=== PATIENT | female | born 1950 | race Caucasian/White ===

== ENCOUNTER 2017-01-26 22:25 | Inpatient (IN) | payer MEDICARE, BC ==
[~2017-01-26] VITALS: Ht 170.2 cm; Wt 59.4 kg
[2017-01-26] MEDS ORDERED: AMLODIPINE BESYL5 MG ORAL (22:43)
[2017-01-26] MEDS ORDERED: MYRBETRIQ50 MG PO (22:43)
[2017-01-26] MEDS ORDERED: ASPIR 8181 MG ORAL (22:43)
[2017-01-26] MEDS ORDERED: WELCHOL625 MG ORAL (22:43)
[2017-01-26] MEDS ORDERED: TRILEPTAL600 MG PO (22:43)
[2017-01-26] MEDS ORDERED: PROBIOTIC 4X C1 EACH PO (22:43)
[2017-01-26] MEDS ORDERED: FAMCICLOVIR500 MG ORAL (22:43)
[2017-01-26] MEDS ORDERED: VITAMIN D400 INTLU ORAL (22:43)
[2017-01-26] MEDS ORDERED: LIDEX15 GM TOPIC (22:43)
[2017-01-26 23:10] VITALS: BP 120/47
--- NOTE | 2017-01-26 23:18 | Emergency Room Report ---
History of Present Illness General Chief Complaint: Seizure Source: Family Member Present Illness HPI Patient is 66-year-old female brought in by EMS after seizure activity. Patient prior history of seizure disorder. Patient also has prior history of fibromyalgia as well as prior craniotomy. Patient has seizure disorder and takes Trileptal the patient reports having some pain to her head. She has been taking only low-dose aspirin she is not on other anticoagulants at this time. The patient reports having some generalized body ache. Patient was noted to have a seizure in which she fell to the floor Allergies: Coded Allergies: ASPIRIN (Verified Allergy, Unknown, 01/26/17) BACLOFEN (Verified Allergy, Unknown, 01/26/17) BENZODIAZEPINES (Verified Allergy, Unknown, 01/26/17) BENZOIN (Verified Allergy, Unknown, 01/26/17) CAFFEINE (Verified Allergy, Unknown, 01/26/17) CEPHALOSPORINS (Verified Allergy, Unknown, 01/26/17) CIPROFLOXACIN (Verified Allergy, Unknown, 01/26/17) CLINDAMYCIN (Verified Allergy, Unknown, 01/26/17) CODEINE (Verified Allergy, Unknown, 01/26/17) DEXAMETHASONE (Verified Allergy, Unknown, 01/26/17) GABAPENTIN (Verified Allergy, Unknown, 01/26/17) LATEX (Verified Allergy, Unknown, 01/26/17) LEVETIRACETAM (Verified Allergy, Unknown, 01/26/17) OATS (Verified Allergy, Unknown, 01/26/17) ORPHENADRINE (Verified Allergy, Unknown, 01/26/17) OXCARBAZEPINE (Verified Allergy, Unknown, 01/26/17) PENICILLINS (Verified Allergy, Unknown, 01/26/17) STRAWBERRY (Verified Allergy, Unknown, 01/26/17) SULFA (SULFONAMIDE ANTIBIOTICS) (Verified Allergy, Unknown, 01/26/17) SULFAMETHOXAZOLE (Verified Allergy, Unknown, 01/26/17) TIZANIDINE (Verified Allergy, Unknown, 01/26/17) TOBRAMYCIN (Verified Allergy, Unknown, 01/26/17) TRIMETHOPRIM (Verified Allergy, Unknown, 01/26/17) WOOL (Verified Allergy, Unknown, 01/26/17) Wheat (Verified Allergy, Unknown, 01/26/17) Uncoded Allergies: CHLORINE (Allergy, Unknown, 01/26/17) SURGICAL TAPE (Allergy, Unknown, 01/26/17) Patient History Past Medical History: see triage record Last Menstrual Period: n/a Reviewed Nursing Documentation: PMH: Agreed, PSxH: Agreed Nursing Documentation-PMH Past Medical History: No History, Except For Hx Cardiac Problems: Yes - MITRAL VALVE PROLAPSE Hx Gastrointestinal Problems: Yes - IBS Hx Neurological Problems: Yes - FIBROMYALGIA, POST-CRANIOTOMY 1999 Hx Seizures: Yes Review of Systems All Other Systems: limited - by postictal state Physical Exam Vital Signs Date Time Temp Pulse Resp B/P (MAP) Pulse Ox O2 Delivery O2 Flow Rate FiO2 01/26/17 23:06 56 12 01/26/17 23:10 120/47 93 Nasal Cannula 2.0 Sp02 EP Interpretation: reviewed, normal General Appearance: normal inspection, well appearing, no apparent distress, alert Head: other - forehead swelling ENT: normal ENT inspection, hearing grossly normal, normal voice Neck: normal inspection, full range of motion, supple, no bony tend Respiratory: normal inspection, lungs clear, normal breath sounds, no respiratory distress, no retraction, no wheezing Cardiovascular #1: regular rate, rhythm, no edema Gastrointestinal: normal inspection, normal bowel sounds, non tender, soft, no guarding, no hernia Genitourinary: no CVA tenderness Musculoskeletal: normal inspection, back normal, normal range of motion Neurologic: normal inspection, alert, oriented x3, responsive, speech normal Psychiatric: normal inspection, judgement/insight normal, mood/affect normal Skin: no rash, hematoma Medical Decision Making Diagnostic Impression: Primary Impression: Epileptic seizure, generalized Additional Impressions: Hyponatremia syndrome Seizure disorder Multiple drug allergies ER Course Patient presented for seizure. Differential diagnosis included cysticercosis, electrolyte abnormality, mass lesion, or cranial hemorrhage.Because of complexity of patient's case laboratory testing and imaging studies were ordered. Laboratory testing was notable for hyponatremia. Patient had the been started on IV fluids. The patient sodium deficit was calculated. She started on IV normal saline. Patient was noted to have recent prep for colonoscopy and was stated that she had been drinking large amounts of water for preparation. The patient has not given hypertonic saline do to the potential for a rapid correction. The patient was noted to have multiple allergies to seizure medications. The patient was noted to have seizure activity while in the emergency department. The seizure resolve spontaneously. Patient was not given benzodiazepines do to stated allergy. Patient has not given Dilantin due to hyponatremia. Dr. Deborah Thomason was contacted for inpatient management Labs Test 01/26/17 22:55 White Blood Count 7.4 K/UL (4.8-10.8) Red Blood Count 4.20 M/UL (4.20-5.40) Hemoglobin 12.9 G/DL (12.0-16.0) Hematocrit 37.5 % (37.0-47.0) Mean Corpuscular Volume 89 FL (80-99) Mean Corpuscular Hemoglobin 30.6 PG (27.0-31.0) Mean Corpuscular Hemoglobin Concent 34.3 G/DL (32.0-36.0) Red Cell Distribution Width 11.9 % (11.6-14.8) Platelet Count 316 K/UL (150-450) Mean Platelet Volume 6.1 FL (6.5-10.1) Neutrophils (%) (Auto) 74.9 % (45.0-75.0) Lymphocytes (%) (Auto) 19.0 % (20.0-45.0) Monocytes (%) (Auto) 4.8 % (1.0-10.0) Eosinophils (%) (Auto) 0.5 % (0.0-3.0) Basophils (%) (Auto) 0.9 % (0.0-2.0) Sodium Level 125 MMOL/L (136-145) Potassium Level 3.2 MMOL/L (3.5-5.1) Chloride Level 87 MMOL/L (98-107) Carbon Dioxide Level 26 MMOL/L (21-32) Anion Gap 12 mmol/L (5-15) Blood Urea Nitrogen 9 mg/dL (7-18) Creatinine 0.7 MG/DL (0.55-1.30) Estimat Glomerular Filtration Rate > 60 mL/min (>60) Glucose Level 174 MG/DL (74-106) Calcium Level 9.5 MG/DL (8.5-10.1) Total Bilirubin 0.6 MG/DL (0.2-1.0) Aspartate Amino Transf (AST/SGOT) 27 U/L (15-37) Alanine Aminotransferase (ALT/SGPT) 17 U/L (12-78) Alkaline Phosphatase 117 U/L (46-116) Total Protein 7.6 G/DL (6.4-8.2) Albumin 4.5 G/DL (3.4-5.0) Globulin 3.1 g/dL Albumin/Globulin Ratio 1.5 (1.0-2.7) Last Vital Signs Date Time Temp Pulse Resp B/P (MAP) Pulse Ox O2 Delivery O2 Flow Rate FiO2 01/26/17 23:10 56 12 120/47 93 Nasal Cannula 2.0 Status: improved Disposition: HOME, SELF-CARE Condition: Stable Referrals: NOT CHOSEN IPA/,REFERRING (PCP) Castillo Hernandez Jan 26, 2017 23:18
[2017-01-26 23:38] LABS: BASOPHILS % (AUTO) 0.9 % (0.0-2.0); EOSINOPHILS % (AUTO) 0.5 % (0.0-3.0); MEAN CORPUSCULAR HEMOGLOBIN 30.6 PG (27.0-31.0); MEAN CORPUSCULAR HGB CONC 34.3 G/DL (32.0-36.0); MEAN CORPUSCULAR VOLUME 89 FL (80-99); MEAN PLATELET VOLUME 6.1 FL (6.5-10.1); MONOCYTES % (AUTO) 4.8 % (1.0-10.0); NEUTROPHILS % (AUTO) 74.9 % (45.0-75.0); PLATELET COUNT 316 K/UL (150-450); RED CELL DISTRIBUTION WIDTH 11.9 % (11.6-14.8); WHITE BLOOD COUNT 7.4 K/UL (4.8-10.8)
[2017-01-26 23:39] LABS: ALANINE AMINOTRANSFERASE 17 U/L (12-78); ALBUMIN/GLOBULIN RATIO 1.5 (1.0-2.7); ANION GAP 12 mmol/L (5-15); ASPARTATE AMINO TRANSFERASE 27 U/L (15-37); CALCIUM 9.5 MG/DL (8.5-10.1); CARBON DIOXIDE 26 MMOL/L (21-32); CHLORIDE 87 MMOL/L (98-107); CREATININE 0.7 MG/DL (0.55-1.30); GLOMERULAR FILTRATION RATE > 60 mL/min (>60); POTASSIUM 3.2 MMOL/L (3.5-5.1); SODIUM 125 MMOL/L (136-145); TOTAL PROTEIN 7.6 G/DL (6.4-8.2)
[2017-01-27] VITALS (9 sets, daily range): BP systolic 115–148; BP diastolic 52–72
[2017-01-27] MEDS ORDERED: levETIRAcetam 500mg vial IV ONE (00:17)
[2017-01-27] MEDS ORDERED: cefTRIAXone 1 GM in NS 55 ML IVPB ONE (02:30)
[2017-01-27 06:52] LABS: APPEARANCE,URINE CLEAR; LEUKOCYTE ESTERASE ,URINE NEGATIVE (NEGATIVE); PH,URINE 8 (4.5-8.0); UROBILINOGEN,URINE NORMAL MG/DL (0.0-1.0)
[2017-01-27 07:01] LABS: KETONES,URINE 2+ (NEGATIVE); NITRITE,URINE NEGATIVE (NEGATIVE); PROTEIN,URINE NEGATIVE (NEGATIVE)
[2017-01-27 07:08] LABS: BACTERIA,URINE FEW /HPF; SQUAMOUS EPITHELIAL CELL,UR OCCASIONAL /LPF (NONE/OCC); WBC,URINE 0-2 /HPF (0 - 2)
[2017-01-27] MEDS ORDERED: Acetaminophen 500mg (ES) tab ORAL PRN (08:15)
--- NOTE | 2017-01-27 08:39 | Consultation ---
History of Present Illness General Date patient seen: Jan 27, 2017 Chief Complaint: Seizure Present Illness Allergies: Coded Allergies: ASPIRIN (Verified Allergy, Unknown, 01/26/17) BACLOFEN (Verified Allergy, Unknown, 01/26/17) BENZODIAZEPINES (Verified Allergy, Unknown, 01/26/17) BENZOIN (Verified Allergy, Unknown, 01/26/17) CAFFEINE (Verified Allergy, Unknown, 01/26/17) CEPHALOSPORINS (Verified Allergy, Unknown, 01/26/17) CIPROFLOXACIN (Verified Allergy, Unknown, 01/26/17) CLINDAMYCIN (Verified Allergy, Unknown, 01/26/17) CODEINE (Verified Allergy, Unknown, 01/26/17) DEXAMETHASONE (Verified Allergy, Unknown, 01/26/17) GABAPENTIN (Verified Allergy, Unknown, 01/26/17) LATEX (Verified Allergy, Unknown, 01/26/17) LEVETIRACETAM (Verified Allergy, Unknown, 01/26/17) OATS (Verified Allergy, Unknown, 01/26/17) ORPHENADRINE (Verified Allergy, Unknown, 01/26/17) PENICILLINS (Verified Allergy, Unknown, 01/26/17) STRAWBERRY (Verified Allergy, Unknown, 01/26/17) SULFA (SULFONAMIDE ANTIBIOTICS) (Verified Allergy, Unknown, 01/26/17) SULFAMETHOXAZOLE (Verified Allergy, Unknown, 01/26/17) TIZANIDINE (Verified Allergy, Unknown, 01/26/17) TOBRAMYCIN (Verified Allergy, Unknown, 01/26/17) TRIMETHOPRIM (Verified Allergy, Unknown, 01/26/17) WOOL (Verified Allergy, Unknown, 01/26/17) Wheat (Verified Allergy, Unknown, 01/26/17) Uncoded Allergies: CHLORINE (Allergy, Unknown, 01/26/17) SURGICAL TAPE (Allergy, Unknown, 01/26/17) Medication History Scheduled Amlodipine Besylate* (Amlodipine Besylate*), 5 MG ORAL DAILY, (Reported) Aspirin* (Aspir 81*), 81 MG ORAL DAILY, (Reported) Famciclovir* (Famvir*), 500 MG ORAL EVERY 12 HOURS, (Reported) Oxcarbazepine* (Trileptal*), 600 MG PO BID, (Reported) Vitamin D (Vitamin D3), 10,000 UNITS ORAL DAILY, (Reported) Miscellaneous Medications B Infantis/B Ani/B Abram/B Bifid (Probiotic 4X Caplet), 1 EACH PO, (Reported) Colesevelam Hcl (Welchol), 625 MG ORAL, (Reported) Fluocinonide* (Lidex*), 1 APPLIC TOPIC, (Reported) Mirabegron (Myrbetriq), 50 MG PO, (Reported) Patient History Healthcare decision maker Resuscitation status Advanced Directive on File Physical Exam Last 24 Hour Vital Signs Date Time Temp Pulse Resp B/P (MAP) Pulse Ox O2 Delivery O2 Flow Rate FiO2 01/27/17 08:30 98.1 53 12 129/72 98 Nasal Cannula 2.0 01/27/17 07:57 98.1 53 12 129/72 98 Nasal Cannula 2.0 01/27/17 07:06 52 17 121/52 99 Nasal Cannula 2.0 01/27/17 03:56 68 17 115/57 99 Nasal Cannula 2.0 01/27/17 02:06 74 15 121/53 98 Nasal Cannula 2.0 01/27/17 00:50 74 15 131/71 98 Nasal Cannula 2.0 01/26/17 23:10 56 12 120/47 93 Nasal Cannula 2.0 01/26/17 23:06 56 12 Laboratory Tests Test 01/26/17 22:55 01/27/17 00:54 White Blood Count 7.4 K/UL (4.8-10.8) Red Blood Count 4.20 M/UL (4.20-5.40) Hemoglobin 12.9 G/DL (12.0-16.0) Hematocrit 37.5 % (37.0-47.0) Mean Corpuscular Volume 89 FL (80-99) Mean Corpuscular Hemoglobin 30.6 PG (27.0-31.0) Mean Corpuscular Hemoglobin Concent 34.3 G/DL (32.0-36.0) Red Cell Distribution Width 11.9 % (11.6-14.8) Platelet Count 316 K/UL (150-450) Mean Platelet Volume 6.1 FL (6.5-10.1) L Neutrophils (%) (Auto) 74.9 % (45.0-75.0) Lymphocytes (%) (Auto) 19.0 % (20.0-45.0) L Monocytes (%) (Auto) 4.8 % (1.0-10.0) Eosinophils (%) (Auto) 0.5 % (0.0-3.0) Basophils (%) (Auto) 0.9 % (0.0-2.0) Sodium Level 125 MMOL/L (136-145) L Potassium Level 3.2 MMOL/L (3.5-5.1) L Chloride Level 87 MMOL/L (98-107) L Carbon Dioxide Level 26 MMOL/L (21-32) Anion Gap 12 mmol/L (5-15) Blood Urea Nitrogen 9 mg/dL (7-18) Creatinine 0.7 MG/DL (0.55-1.30) Estimat Glomerular Filtration Rate > 60 mL/min (>60) Glucose Level 174 MG/DL (74-106) H Calcium Level 9.5 MG/DL (8.5-10.1) Total Bilirubin 0.6 MG/DL (0.2-1.0) Aspartate Amino Transf (AST/SGOT) 27 U/L (15-37) Alanine Aminotransferase (ALT/SGPT) 17 U/L (12-78) Alkaline Phosphatase 117 U/L (46-116) H Total Protein 7.6 G/DL (6.4-8.2) Albumin 4.5 G/DL (3.4-5.0) Globulin 3.1 g/dL Albumin/Globulin Ratio 1.5 (1.0-2.7) Urine Color Pale yellow Urine Appearance Clear Urine pH 8 (4.5-8.0) Urine Specific [place] 1.010 (1.005-1.035) Urine Protein Negative (NEGATIVE) Urine Glucose (UA) 3+ (NEGATIVE) H Urine Ketones 2+ (NEGATIVE) H Urine Occult Blood 3+ (NEGATIVE) H Urine Nitrite Negative (NEGATIVE) Urine Bilirubin Negative (NEGATIVE) Urine Urobilinogen Normal MG/DL (0.0-1.0) Urine Leukocyte Esterase Negative (NEGATIVE) Urine RBC 5-10 /HPF (0 - 2) H Urine WBC 0-2 /HPF (0 - 2) Urine Squamous Epithelial Cells Occasional /LPF Urine Bacteria Few /HPF (NONE) Height (Feet): 5 Height (Inches): 7.00 Weight (Pounds): 150 Medications Current Medications Medications (Trade) Dose Ordered Sig/Heri Route PRN Reason Start Time Stop Time Status Last Admin Dose Admin Acetaminophen (Tylenol) 500 mg Q4H PRN ORAL Mild Pain/Temp > 100.5 01/27/17 08:15 02/26/17 08:14 Sodium Chloride 1,000 ml @ 60 mls/hr [id number] IV 01/27/17 09:00 02/26/17 08:59 Assessment/Plan Status Narrative (1) Cervicalgia (2) Seizure disorder (3) Head contusion seen dictated. LAURO CHARLES Jan 27, 2017 08:39
--- NOTE | 2017-01-27 09:06 | Diagnostic Imaging Report ---
Indication: PAIN altered mental status Technique: Continuous helical CT scanning of the head was performed without intravenous contrast material. Axial and coronal 5 mm sections were generated. Radiation dose was minimized using automated exposure control Dose: Total Dose Length Product - DLP [address] Dose Index - CTDIvol(s) 70.38 mGy. Comparison: None Findings: The ventricular system is normal in size and configuration. There is some periventricular deep white matter chronic ischemic change. There is no shift of midline structures. No abnormal extra-axial fluid collections are noted. There is no evidence of intracerebral bleeding. There is evidence of prior right lobe temporal region craniotomy/craniectomy. There is evidence of encephalomalacia of the right temporal tip. 3 small focal area of low attenuation is seen in the anterior right parietal lobe, appears to involve both cortex and deep white matter. The remainder the calvarium is intact. There is left ethmoid sinus opacification. The mastoids are clear. There is no right supraorbital scalp soft tissue swelling Impression: Evidence of prior right temporal craniotomy. Underlying temporal encephalomalacia, likely related to such. Small focal area of low attenuation within the right parietal lobe, may be related to the above or could represent a small cortical infarct Minimal right supraorbital scalp soft tissue swelling, correlate with any clinical history of trauma Other chronic and age-related changes, as described Negative for acute intracranial bleed or mass effect The CT scanner at [facility] is accredited by the [employer] and the scans are performed using protocols designed to limit radiation exposure to as low as reasonably achievable to attain images of sufficient resolution adequate for diagnostic evaluation.
--- NOTE | 2017-01-27 09:54 | Consultation ---
Consult Note Consult Note asked to eval for low Na Patient is 66-year-old female brought in by EMS after seizure activity. Patient prior history of seizure disorder. Patient also has prior history of fibromyalgia as well as prior craniotomy. Patient has seizure disorder and takes Trileptal the patient reports having some pain to her head. She has been taking only low-dose aspirin she is not on other anticoagulants at this time. The patient reports having some generalized body ache. Patient was noted to have a seizure in which she fell to the floor patient allergic to over 25 medication and food agents O/E no edematous state . Assessment/Plan HypoNatremia likely SIADH Britr comments after urine and blood tests : Osmol, Spot Na...... Other: Epileptic seizure, generalized Hyponatremia syndrome Seizure disorder Multiple drug allergies Plan: Per orders- DC Hypotonic IV solution Urine studies- Serum studies- VISHAL GOODE Jan 27, 2017 09:54
[2017-01-27 10:14] LABS: OSMOLALITY SERUM 268 mOsm/kg (297-317)
[2017-01-27 10:26] LABS: ALANINE AMINOTRANSFERASE 17 U/L (12-78); ALBUMIN/GLOBULIN RATIO 1.3 (1.0-2.7); ANION GAP 7 mmol/L (5-15); ASPARTATE AMINO TRANSFERASE 23 U/L (15-37); CALCIUM 9.1 MG/DL (8.5-10.1); CARBON DIOXIDE 31 MMOL/L (21-32); CHLORIDE 90 MMOL/L (98-107); CHOLESTEROL 155 MG/DL (< 200); CHOLESTEROL/HDL RATIO 1.6 (3.3-4.4); CREATININE 0.5 MG/DL (0.55-1.30); CRP QUANT < 0.4 mg/dL (0.00-0.90); GLOMERULAR FILTRATION RATE > 60 mL/min (>60); MAGNESIUM 2.7 MG/DL (1.8-2.4); PHOSPHORUS 3.4 MG/DL (2.5-4.9); POTASSIUM 3.6 MMOL/L (3.5-5.1); SODIUM 128 MMOL/L (136-145); THYROID STIMULATING HORMONE 1.286 uiU/mL (0.360-3.740); TOTAL PROTEIN 7.2 G/DL (6.4-8.2); URIC ACID 2.1 MG/DL (2.6-7.2)
[2017-01-27] MEDS ORDERED: KCl 10% 40mEq/30ml liquid NG SCH (11:30)
--- NOTE | 2017-01-27 11:57 | Neurology Progress Note ---
Objective Physical Exam Last Vital Signs Date Time Temp Pulse Resp B/P (MAP) Pulse Ox O2 Delivery O2 Flow Rate FiO2 01/27/17 11:42 97.5 60 18 148/61 96 Room Air 01/27/17 08:30 2.0 Laboratory Tests Test 01/26/17 22:55 01/27/17 00:54 01/27/17 09:30 White Blood Count 7.4 K/UL (4.8-10.8) Red Blood Count 4.20 M/UL (4.20-5.40) Hemoglobin 12.9 G/DL (12.0-16.0) Hematocrit 37.5 % (37.0-47.0) Mean Corpuscular Volume 89 FL (80-99) Mean Corpuscular Hemoglobin 30.6 PG (27.0-31.0) Mean Corpuscular Hemoglobin Concent 34.3 G/DL (32.0-36.0) Red Cell Distribution Width 11.9 % (11.6-14.8) Platelet Count 316 K/UL (150-450) Mean Platelet Volume 6.1 FL (6.5-10.1) L Neutrophils (%) (Auto) 74.9 % (45.0-75.0) Lymphocytes (%) (Auto) 19.0 % (20.0-45.0) L Monocytes (%) (Auto) 4.8 % (1.0-10.0) Eosinophils (%) (Auto) 0.5 % (0.0-3.0) Basophils (%) (Auto) 0.9 % (0.0-2.0) Sodium Level 125 MMOL/L (136-145) L 128 MMOL/L (136-145) L Potassium Level 3.2 MMOL/L (3.5-5.1) L 3.6 MMOL/L (3.5-5.1) Chloride Level 87 MMOL/L (98-107) L 90 MMOL/L (98-107) L Carbon Dioxide Level 26 MMOL/L (21-32) 31 MMOL/L (21-32) Anion Gap 12 mmol/L (5-15) 7 mmol/L (5-15) Blood Urea Nitrogen 9 mg/dL (7-18) 7 mg/dL (7-18) Creatinine 0.7 MG/DL (0.55-1.30) 0.5 MG/DL (0.55-1.30) L Estimat Glomerular Filtration Rate > 60 mL/min (>60) > 60 mL/min (>60) Glucose Level 174 MG/DL (74-106) H 106 MG/DL (74-106) Calcium Level 9.5 MG/DL (8.5-10.1) 9.1 MG/DL (8.5-10.1) Total Bilirubin 0.6 MG/DL (0.2-1.0) 0.6 MG/DL (0.2-1.0) Aspartate Amino Transf (AST/SGOT) 27 U/L (15-37) 23 U/L (15-37) Alanine Aminotransferase (ALT/SGPT) 17 U/L (12-78) 17 U/L (12-78) Alkaline Phosphatase 117 U/L (46-116) H 109 U/L (46-116) Total Protein 7.6 G/DL (6.4-8.2) 7.2 G/DL (6.4-8.2) Albumin 4.5 G/DL (3.4-5.0) 4.1 G/DL (3.4-5.0) Globulin 3.1 g/dL 3.1 g/dL Albumin/Globulin Ratio 1.5 (1.0-2.7) 1.3 (1.0-2.7) Urine Color Pale yellow Urine Appearance Clear Urine pH 8 (4.5-8.0) Urine Specific [place] 1.010 (1.005-1.035) Urine Protein Negative (NEGATIVE) Urine Glucose (UA) 3+ (NEGATIVE) H Urine Ketones 2+ (NEGATIVE) H Urine Occult Blood 3+ (NEGATIVE) H Urine Nitrite Negative (NEGATIVE) Urine Bilirubin Negative (NEGATIVE) Urine Urobilinogen Normal MG/DL (0.0-1.0) Urine Leukocyte Esterase Negative (NEGATIVE) Urine RBC 5-10 /HPF (0 - 2) H Urine WBC 0-2 /HPF (0 - 2) Urine Squamous Epithelial Cells Occasional /LPF Urine Bacteria Few /HPF (NONE) Urine Osmolality 313 mOsm/kg (429-449) L Urine Random Sodium 120 MEQ/L (20-110) H Osmolality 268 mOsm/kg (297-317) L Uric Acid 2.1 MG/DL (2.6-7.2) L Phosphorus Level 3.4 MG/DL (2.5-4.9) Magnesium Level 2.7 MG/DL (1.8-2.4) H C-Reactive Protein, Quantitative < 0.4 mg/dL (0.00-0.90) Pro-B-Type Natriuretic Peptide 471 pg/mL (0-125) H Triglycerides Level 35 MG/DL (0-200) Cholesterol Level 155 MG/DL (< 200) LDL Cholesterol 55 mg/dL (<100) HDL Cholesterol 96 MG/DL (40-60) H Cholesterol/HDL Ratio 1.6 (3.3-4.4) L Thyroid Stimulating Hormone (TSH) 1.286 uiU/mL (0.360-3.740) Opiates Screen Pending Oxycodone Level Pending Blood Methadone Screen Pending Blood Propoxyphene Screen Pending Blood Barbiturates Screen Pending Phencyclidine (PCP) Screen Pending Amphetamines Screen Pending Benzodiazepines Screen Pending Blood Cocaine/Metabolite Screen Pending Marijuana (THC) Screen Pending Blood Drug Screen Comment Pending Impression/Recommendations Recommendations #[id number] REHANA LOO Jan 27, 2017 11:57
[2017-01-27] MEDS ORDERED: NaCl 3% 500ml 500 ML IV ONE (13:00)
--- NOTE | 2017-01-27 14:05 | Diagnostic Imaging Report ---
Indication: 66-year-old female inpatient with chronic neck pain, increased over the past one day Technique: Sagittal T1 FLAIR PROPELLER, sagittal T2 PROPELLOR, sagittal STIR, axial T2 PROPELLER, axial 3D COSMIC ASPIR images were obtained through the cervical spine Comparison: None Findings: There is reversal of the normal cervical lordosis. Mild anterior offset of C2 and C3 and of C4 on C5 likely on the basis of degenerative changes. Vertebral marrow signal is preserved. The intrinsic cord signal is normal. At C2-3, the disc space is preserved. Slight broad-based posterior disc protrusion and osteophyte complex, exacerbated with short pedicles, results in borderline narrowing of the spinal canal but no significant cord impingement. The neural foramina are preserved. At C3-4, the disc space is preserved. Broad-based posterior disc protrusion and osteophyte complex, exacerbated by short pedicles, result in borderline narrowing of the spinal canal, but no significant cord impingement. There is mild narrowing of the left neural foramen. At C4-5, there is minimal degenerative disc narrowing. Posterior osteophytes and short pedicles result in borderline narrowing of the spinal canal, particularly to the right of midline, but no significant cord impingement. There may be compromise of the right lateral recess at this level, however. There is mild left and at least moderate right neural foraminal narrowing, due to uncinate and facet hypertrophy. At C5-6, there is minimal degenerative disc narrowing and circumferential annular bulge. This, in combination with short pedicles, results in moderate narrowing of the spinal canal, 8 mm minimum AP dimension. There is moderate bilateral neural foraminal stenosis. At C6-7, there is moderate degenerative disc narrowing. There is circumferential annular bulge, particularly in the left subarticular zone, which results in mild spinal stenosis, may slightly impinge on left side of the cord as well as the left lateral recess. There is moderate bilateral neural foraminal stenosis at this level. At C7-T1, no significant disc bulge or protrusion or spinal stenosis. Facet hypertrophy results in mild stenosis of left neural foramen. The included extraspinal soft tissues are marked wall for mild enlargement of the thyroid, which is somewhat heterogeneous. Impression: Acute bony trauma Degenerative changes, manifested primarily by spinal stenosis and neural foraminal narrowing, as delineated on a level by level basis above Mild thyromegaly
[2017-01-27] MEDS: OXcarbazepine 150mg tab ORAL SCH ×2 (14:11→14:25)
[2017-01-27] MEDS: TRILEPTAL 150 MG ORAL SCH ×2 (17:32→20:22)
[2017-01-27] MEDS: KCl 10% 40mEq/30ml liquid ORAL SCH (17:33)
--- NOTE | 2017-01-27 20:18 | Infectious Diseases Prog Note ---
Assessment/Plan Problems: (1) Recurrent herpes simplex Assessment & Plan: OK to continue famciclovir for chronic suppression. (2) Epileptic seizure, generalized (3) Hyponatremia syndrome (4) Multiple drug allergies (5) Seizure disorder Subjective Allergies: Coded Allergies: ASPIRIN (Verified Allergy, Unknown, 01/26/17) BACLOFEN (Verified Allergy, Unknown, 01/26/17) BENZODIAZEPINES (Verified Allergy, Unknown, 01/26/17) BENZOIN (Verified Allergy, Unknown, 01/26/17) CAFFEINE (Verified Allergy, Unknown, 01/26/17) CEPHALOSPORINS (Verified Allergy, Unknown, 01/26/17) CIPROFLOXACIN (Verified Allergy, Unknown, 01/26/17) CLINDAMYCIN (Verified Allergy, Unknown, 01/26/17) CODEINE (Verified Allergy, Unknown, 01/26/17) DEXAMETHASONE (Verified Allergy, Unknown, 01/26/17) GABAPENTIN (Verified Allergy, Unknown, 01/26/17) LATEX (Verified Allergy, Unknown, 01/26/17) LEVETIRACETAM (Verified Allergy, Unknown, 01/26/17) OATS (Verified Allergy, Unknown, 01/26/17) ORPHENADRINE (Verified Allergy, Unknown, 01/26/17) PENICILLINS (Verified Allergy, Unknown, 01/26/17) STRAWBERRY (Verified Allergy, Unknown, 01/26/17) SULFA (SULFONAMIDE ANTIBIOTICS) (Verified Allergy, Unknown, 01/26/17) SULFAMETHOXAZOLE (Verified Allergy, Unknown, 01/26/17) TIZANIDINE (Verified Allergy, Unknown, 01/26/17) TOBRAMYCIN (Verified Allergy, Unknown, 01/26/17) TRIMETHOPRIM (Verified Allergy, Unknown, 01/26/17) WOOL (Verified Allergy, Unknown, 01/26/17) Wheat (Verified Allergy, Unknown, 01/26/17) Uncoded Allergies: CHLORINE (Allergy, Unknown, 01/26/17) SURGICAL TAPE (Allergy, Unknown, 01/26/17) Objective Vital Signs Last 24 Hour Vital Signs Date Time Temp Pulse Resp B/P (MAP) Pulse Ox O2 Delivery O2 Flow Rate FiO2 01/27/17 16:00 64 01/27/17 15:27 98.2 63 18 122/67 99 Room Air 01/27/17 12:00 61 01/27/17 11:42 97.5 60 18 148/61 96 Room Air 01/27/17 08:45 58 01/27/17 08:30 98.1 53 12 129/72 98 Nasal Cannula 2.0 01/27/17 08:30 60 18 124/57 100 Room Air 01/27/17 07:57 98.1 53 12 129/72 98 Nasal Cannula 2.0 01/27/17 07:06 52 17 121/52 99 Nasal Cannula 2.0 01/27/17 03:56 68 17 115/57 99 Nasal Cannula 2.0 01/27/17 02:06 74 15 121/53 98 Nasal Cannula 2.0 01/27/17 00:50 74 15 131/71 98 Nasal Cannula 2.0 01/26/17 23:10 56 12 120/47 93 Nasal Cannula 2.0 01/26/17 23:06 56 12 Height (Feet): 5 Height (Inches): 7.00 Weight (Pounds): 150 Laboratory Tests Test 01/26/17 22:55 01/27/17 00:54 01/27/17 09:30 01/27/17 13:35 White Blood Count 7.4 K/UL (4.8-10.8) Red Blood Count 4.20 M/UL (4.20-5.40) Hemoglobin 12.9 G/DL (12.0-16.0) Hematocrit 37.5 % (37.0-47.0) Mean Corpuscular Volume 89 FL (80-99) Mean Corpuscular Hemoglobin 30.6 PG (27.0-31.0) Mean Corpuscular Hemoglobin Concent 34.3 G/DL (32.0-36.0) Red Cell Distribution Width 11.9 % (11.6-14.8) Platelet Count 316 K/UL (150-450) Mean Platelet Volume 6.1 FL (6.5-10.1) L Neutrophils (%) (Auto) 74.9 % (45.0-75.0) Lymphocytes (%) (Auto) 19.0 % (20.0-45.0) L Monocytes (%) (Auto) 4.8 % (1.0-10.0) Eosinophils (%) (Auto) 0.5 % (0.0-3.0) Basophils (%) (Auto) 0.9 % (0.0-2.0) Sodium Level 125 MMOL/L (136-145) L 128 MMOL/L (136-145) L Potassium Level 3.2 MMOL/L (3.5-5.1) L 3.6 MMOL/L (3.5-5.1) Chloride Level 87 MMOL/L (98-107) L 90 MMOL/L (98-107) L Carbon Dioxide Level 26 MMOL/L (21-32) 31 MMOL/L (21-32) Anion Gap 12 mmol/L (5-15) 7 mmol/L (5-15) Blood Urea Nitrogen 9 mg/dL (7-18) 7 mg/dL (7-18) Creatinine 0.7 MG/DL (0.55-1.30) 0.5 MG/DL (0.55-1.30) L Estimat Glomerular Filtration Rate > 60 mL/min (>60) > 60 mL/min (>60) Glucose Level 174 MG/DL (74-106) H 106 MG/DL (74-106) Calcium Level 9.5 MG/DL (8.5-10.1) 9.1 MG/DL (8.5-10.1) Total Bilirubin 0.6 MG/DL (0.2-1.0) 0.6 MG/DL (0.2-1.0) Aspartate Amino Transf (AST/SGOT) 27 U/L (15-37) 23 U/L (15-37) Alanine Aminotransferase (ALT/SGPT) 17 U/L (12-78) 17 U/L (12-78) Alkaline Phosphatase 117 U/L (46-116) H 109 U/L (46-116) Total Protein 7.6 G/DL (6.4-8.2) 7.2 G/DL (6.4-8.2) Albumin 4.5 G/DL (3.4-5.0) 4.1 G/DL (3.4-5.0) Globulin 3.1 g/dL 3.1 g/dL Albumin/Globulin Ratio 1.5 (1.0-2.7) 1.3 (1.0-2.7) Urine Color Pale yellow Urine Appearance Clear Urine pH 8 (4.5-8.0) Urine Specific [place] 1.010 (1.005-1.035) Urine Protein Negative (NEGATIVE) Urine Glucose (UA) 3+ (NEGATIVE) H Urine Ketones 2+ (NEGATIVE) H Urine Occult Blood 3+ (NEGATIVE) H Urine Nitrite Negative (NEGATIVE) Urine Bilirubin Negative (NEGATIVE) Urine Urobilinogen Normal MG/DL (0.0-1.0) Urine Leukocyte Esterase Negative (NEGATIVE) Urine RBC 5-10 /HPF (0 - 2) H Urine WBC 0-2 /HPF (0 - 2) Urine Squamous Epithelial Cells Occasional /LPF Urine Bacteria Few /HPF (NONE) Urine Osmolality 313 mOsm/kg (429-449) L Urine Random Sodium 120 MEQ/L (20-110) H Osmolality 268 mOsm/kg (297-317) L Uric Acid 2.1 MG/DL (2.6-7.2) L Phosphorus Level 3.4 MG/DL (2.5-4.9) Magnesium Level 2.7 MG/DL (1.8-2.4) H C-Reactive Protein, Quantitative < 0.4 mg/dL (0.00-0.90) Pro-B-Type Natriuretic Peptide 471 pg/mL (0-125) H Triglycerides Level 35 MG/DL (0-200) Cholesterol Level 155 MG/DL (< 200) LDL Cholesterol 55 mg/dL (<100) HDL Cholesterol 96 MG/DL (40-60) H Cholesterol/HDL Ratio 1.6 (3.3-4.4) L Thyroid Stimulating Hormone (TSH) 1.286 uiU/mL (0.360-3.740) Opiates Screen Pending Oxycodone Level Pending Blood Methadone Screen Pending Blood Propoxyphene Screen Pending Blood Barbiturates Screen Pending Phencyclidine (PCP) Screen Pending Amphetamines Screen Pending Benzodiazepines Screen Pending Blood Cocaine/Metabolite Screen Pending Marijuana (THC) Screen Pending Blood Drug Screen Comment Pending Oxcarbazepine Metabolite Pending Current Medications Medications (Trade) Dose Ordered Sig/Heri Route PRN Reason Start Time Stop Time Status Last Admin Dose Admin Acetaminophen (Tylenol) 500 mg Q4H PRN ORAL Mild Pain/Temp > 100.5 01/27/17 08:15 02/26/17 08:14 Furosemide (Lasix) 10 mg Q6HR IV 01/27/17 18:00 02/26/17 17:59 01/27/17 17:32 Patient Own Medication (Patient's Own Med) 2 ea EVERY 12 HOURS ORAL 01/27/17 18:00 02/26/17 17:59 01/27/17 17:32 Patient Own Medication (Patient's Own Med) 2 ea Q12HR ORAL 01/27/17 21:00 02/26/17 20:59 Potassium Chloride (KCl 10% 40mEq Oral solution) 40 meq TWICE A DAY ORAL 01/27/17 18:00 02/26/17 17:59 01/27/17 17:33 Sodium Chloride 500 ml @ 30 mls/hr ONCE ONCE IV 01/27/17 13:00 01/28/17 05:39 01/27/17 13:00 ALBERTO ELIZABETH Jan 27, 2017 20:18
[2017-01-27] MEDS ORDERED: Famciclovir 500 tab ORAL SCH (21:00)
[2017-01-27] MEDS: FAMCICLOVIR 250 MG ORAL SCH (23:24)
[2017-01-28] VITALS: BP 106/60
[2017-01-28 04:00] VITALS: BP 119/60
[2017-01-28 08:17] LABS: BASOPHILS % (AUTO) 0.5 % (0.0-2.0); EOSINOPHILS % (AUTO) 0.1 % (0.0-3.0); LYMPHOCYTES % (AUTO) 17.4 % (20.0-45.0); MEAN CORPUSCULAR HEMOGLOBIN 29.3 PG (27.0-31.0); MEAN CORPUSCULAR HGB CONC 31.2 G/DL (32.0-36.0); MEAN CORPUSCULAR VOLUME 94 FL (80-99); MEAN PLATELET VOLUME 5.4 FL (6.5-10.1); MONOCYTES % (AUTO) 8.5 % (1.0-10.0); NEUTROPHILS % (AUTO) 73.5 % (45.0-75.0); PLATELET COUNT 290 K/UL (150-450); RED BLOOD COUNT 3.87 M/UL (4.20-5.40); RED CELL DISTRIBUTION WIDTH 12.5 % (11.6-14.8); WHITE BLOOD COUNT 8.5 K/UL (4.8-10.8)
[2017-01-28 08:22] LABS: ANION GAP 7 mmol/L (5-15); CALCIUM 9.2 MG/DL (8.5-10.1); CARBON DIOXIDE 27 MMOL/L (21-32); CHLORIDE 107 MMOL/L (98-107); CREATININE 0.7 MG/DL (0.55-1.30); GLOMERULAR FILTRATION RATE > 60 mL/min (>60); POTASSIUM 4.3 MMOL/L (3.5-5.1); SODIUM 141 MMOL/L (136-145)
[2017-01-28 08:38] VITALS: BP 147/67
--- NOTE | 2017-01-28 08:42 | General Progress Note ---
Assessment/Plan Assessment/Plan (1) Cervicalgia (2) Seizure disorder (3) Head contusion (4) Right shoulder contusion (5) Cervical DDD (6) Cervical spondylosis (7) Cervical herniated disc Pt will be conitnued on Tylenol. We will order Xray of right shoulder D/w Dr. Rosenthal and he concurred. Subjective Date patient seen: Jan 28, 2017 Time patient seen: 07:30 - am Constitutional: Reports: weakness HEENT: Reports: no symptoms Cardiovascular: Reports: no symptoms Respiratory: Reports: no symptoms Gastrointestinal/Abdominal: Reports: no symptoms Genitourinary: Reports: no symptoms Neurologic/Psychiatric: Reports: headache, weakness Endocrine: Reports: no symptoms Hematologic/Lymphatic: Reports: no symptoms Allergies: Coded Allergies: ASPIRIN (Verified Allergy, Unknown, 01/26/17) BACLOFEN (Verified Allergy, Unknown, 01/26/17) BENZODIAZEPINES (Verified Allergy, Unknown, 01/26/17) BENZOIN (Verified Allergy, Unknown, 01/26/17) CAFFEINE (Verified Allergy, Unknown, 01/26/17) CEPHALOSPORINS (Verified Allergy, Unknown, 01/26/17) CIPROFLOXACIN (Verified Allergy, Unknown, 01/26/17) CLINDAMYCIN (Verified Allergy, Unknown, 01/26/17) CODEINE (Verified Allergy, Unknown, 01/26/17) DEXAMETHASONE (Verified Allergy, Unknown, 01/26/17) GABAPENTIN (Verified Allergy, Unknown, 01/26/17) LATEX (Verified Allergy, Unknown, 01/26/17) LEVETIRACETAM (Verified Allergy, Unknown, 01/26/17) OATS (Verified Allergy, Unknown, 01/26/17) ORPHENADRINE (Verified Allergy, Unknown, 01/26/17) PENICILLINS (Verified Allergy, Unknown, 01/26/17) STRAWBERRY (Verified Allergy, Unknown, 01/26/17) SULFA (SULFONAMIDE ANTIBIOTICS) (Verified Allergy, Unknown, 01/26/17) SULFAMETHOXAZOLE (Verified Allergy, Unknown, 01/26/17) TIZANIDINE (Verified Allergy, Unknown, 01/26/17) TOBRAMYCIN (Verified Allergy, Unknown, 01/26/17) TRIMETHOPRIM (Verified Allergy, Unknown, 01/26/17) WOOL (Verified Allergy, Unknown, 01/26/17) Wheat (Verified Allergy, Unknown, 01/26/17) Uncoded Allergies: CHLORINE (Allergy, Unknown, 01/26/17) SURGICAL TAPE (Allergy, Unknown, 01/26/17) Subjective Pt is in bed no signs of distress or pain at this time. MRI was reviewed with patient. She is c/o right shoulder pain and found to have bruising as well. Objective Last 24 Hour Vital Signs Date Time Temp Pulse Resp B/P (MAP) Pulse Ox O2 Delivery O2 Flow Rate FiO2 01/28/17 04:00 53 01/28/17 04:00 100.9 50 20 119/60 97 Room Air 01/28/17 00:00 61 01/28/17 00:00 98.1 74 20 106/60 100 Room Air 01/27/17 20:00 61 01/27/17 20:00 98.4 58 20 125/59 97 Room Air 58 01/27/17 16:00 64 01/27/17 15:27 98.2 63 18 122/67 99 Room Air 01/27/17 12:00 61 01/27/17 11:42 97.5 60 18 148/61 96 Room Air 01/27/17 08:45 58 Laboratory Tests 01/27/17 09:30: Sodium Level 128L, Potassium Level 3.6, Chloride Level 90L, Carbon Dioxide Level 31, Anion Gap 7, Blood Urea Nitrogen 7, Creatinine 0.5L, Estimat Glomerular Filtration Rate > 60, Glucose Level 106, Osmolality 268L, Uric Acid 2.1L, Calcium Level 9.1, Phosphorus Level 3.4, Magnesium Level 2.7H, Total Bilirubin 0.6, Aspartate Amino Transf (AST/SGOT) 23, Alanine Aminotransferase ( ALT/SGPT) 17, Alkaline Phosphatase 109, C-Reactive Protein, Quantitative < 0.4, Pro-B-Type Natriuretic Peptide 471H, Total Protein 7.2, Albumin 4.1, Globulin 3.1, Albumin/Globulin Ratio 1.3, Triglycerides Level 35, Cholesterol Level 155, LDL Cholesterol 55, HDL Cholesterol 96H, Cholesterol/HDL Ratio 1.6L, Thyroid Stimulating Hormone (TSH) 1.286, Opiates Screen [Pending], Oxycodone Level [ Pending], Blood Methadone Screen [Pending], Blood Propoxyphene Screen [Pending] , Blood Barbiturates Screen [Pending], Phencyclidine (PCP) Screen [Pending], Amphetamines Screen [Pending], Benzodiazepines Screen [Pending], Blood Cocaine/ Metabolite Screen [Pending], Marijuana (THC) Screen [Pending], Blood Drug Screen Comment [Pending] 01/27/17 13:35: Oxcarbazepine Metabolite [Pending] 01/28/17 07:20: Sodium Level 141#, Potassium Level 4.3, Chloride Level 107, Carbon Dioxide Level 27, Anion Gap 7, Blood Urea Nitrogen 13, Creatinine 0.7, Estimat Glomerular Filtration Rate > 60, Glucose Level 92, Calcium Level 9.2, White Blood Count 8.5, Red Blood Count 3.87L, Hemoglobin 11.3L, Hematocrit 36.4L, Mean Corpuscular Volume 94, Mean Corpuscular Hemoglobin 29.3, Mean Corpuscular Hemoglobin Concent 31.2L, Red Cell Distribution Width 12.5, Platelet Count 290, Mean Platelet Volume 5.4L, Neutrophils (%) (Auto) 73.5, Lymphocytes (%) (Auto) 17.4L, Monocytes (%) (Auto) 8.5, Eosinophils (%) (Auto) 0.1, Basophils (%) (Auto ) 0.5 Height (Feet): 5 Height (Inches): 7.00 Weight (Pounds): 128 General Appearance: no apparent distress, alert EENT: PERRL/EOMI, normal ENT inspection Neck: non-tender, normal alignment Cardiovascular: normal rate, regular rhythm Respiratory/Chest: lungs clear, normal breath sounds Abdomen: normal bowel sounds, non tender, soft Extremities: other - ecchymosis noted to right shoulder with tenderness to palpation Neurologic: alert, responsive Skin: warm/dry Objective MRI C Spine no Contrast Findings: There is reversal of the normal cervical lordosis. Mild anterior offset of C2 and C3 and of C4 on C5 likely on the basis of degenerative changes. Vertebral marrow signal is preserved. The intrinsic cord signal is normal. At C2-3, the disc space is preserved. Slight broad-based posterior disc protrusion and osteophyte complex, exacerbated with short pedicles, results in borderline narrowing of the spinal canal but no significant cord impingement. The neural foramina are preserved. At C3-4, the disc space is preserved. Broad-based posterior disc protrusion and osteophyte complex, exacerbated by short pedicles, result in borderline narrowing of the spinal canal, but no significant cord impingement. There is mild narrowing of the left neural foramen. At C4-5, there is minimal degenerative disc narrowing. Posterior osteophytes and short pedicles result in borderline narrowing of the spinal canal, particularly to the right of midline, but no significant cord impingement. There may be compromise of the right lateral recess at this level, however. There is mild left and at least moderate right neural foraminal narrowing, due to uncinate and facet hypertrophy. At C5-6, there is minimal degenerative disc narrowing and circumferential annular bulge. This, in combination with short pedicles, results in moderate narrowing of the spinal canal, 8 mm minimum AP dimension. There is moderate bilateral neural foraminal stenosis. At C6-7, there is moderate degenerative disc narrowing. There is circumferential annular bulge, particularly in the left subarticular zone, which results in mild spinal stenosis, may slightly impinge on left side of the cord as well as the left lateral recess. There is moderate bilateral neural foraminal stenosis at this level. At C7-T1, no significant disc bulge or protrusion or spinal stenosis. Facet hypertrophy results in mild stenosis of left neural foramen. The included extraspinal soft tissues are marked wall for mild enlargement of the thyroid, which is somewhat heterogeneous. Impression: Acute bony trauma Degenerative changes, manifested primarily by spinal stenosis and neural foraminal narrowing, as delineated on a level by level basis above Mild thyromegaly LAURO CHARLES Jan 28, 2017 08:42
[2017-01-28] MEDS: TRILEPTAL 150 MG ORAL SCH ×2 (08:52→21:46)
[2017-01-28] MEDS: KCl 10% 40mEq/30ml liquid ORAL SCH (08:56)
[2017-01-28] MEDS: FAMCICLOVIR 250 MG ORAL SCH (08:57)
--- NOTE | 2017-01-28 09:15 | Consultation ---
DATE OF CONSULTATION: 01/27/2017 NOTE: POOR AUDIO QUALITY PAIN MANAGEMENT CONSULTATION REFERRING PHYSICIAN: Deborah Angela M.D. CONSULTING PHYSICIAN: Philip Rosenthal M.D. PHYSICIAN CATECHIST: Justina Mendoza CHIEF COMPLAINT: Neck pain and headache. HISTORY OF PRESENT ILLNESS: The patient is a 66-year-old female, who is being seen on the telemetry floor of [facility] for initial comprehensive pain management consultation. The patient was brought to the emergency room by EMS for seizure activity. She has a history of seizure disorder and craniotomy, found to have landed on her head causing contusion with severe neck pain. The patient has a long medication allergy. Due to this, we were consulted so that the patient would have adequate pain control while here in the hospital. PAST MEDICAL HISTORY: Mitral valve prolapse, IBS, and fibromyalgia. PAST SURGICAL HISTORY: Post craniotomy. ALLERGIES: Aspirin, baclofen, benzodiazepine, benzoin, caffeine, cephalosporins, ciprofloxacin, clindamycin, codeine, dexamethasone, oats, carbamazepine, penicillin, strawberry, sulfa, sulfamethoxazole, tizanidine, tobramycin, and Zofran MEDICATIONS: Amlodipine, aspirin, Famvir, vitamin D, probiotics, Welchol, Lipex, and mirabegron. SOCIAL HISTORY: Denies smoking tobacco, drinking alcohol, or drug abuse. REVIEW OF SYSTEMS: Denies rash, fever, chills, drowsiness, blurred vision, sore throat, or change in her weight. No nausea, vomiting, diarrhea, or blood in the stool or urine. No bowel or bladder incontinence. She is complaining of headaches and neck pain. PHYSICAL EXAMINATION: GENERAL: Alert, awake, and oriented x3. VITAL SIGNS: Blood pressure 110/70, heart rate is 63, oxygen saturation 90%, respiratory rate 12, and temperature is 98.1 degrees Fahrenheit. HEENT: Contusion noted at the right forehead. Tenderness to palpation. NECK: Range of motion is decreased due to the patient's clinical condition. No tenderness to paracervical muscles. No adenopathy. LUNGS: Clear. HEART: Regular. ABDOMEN: Benign. BACK: Range of motion is full on flexion and extension. No tenderness to paracervical muscles, trapezius, or rhomboid muscles. EXTREMITIES: Upper extremity range of motion is full in all directions. Motor is intact. No cyanosis. No clubbing. No edema. Sensory is intact. Reflexes are unobtainable. There is no adenopathy. Lower extremity range of motion is full. Motor is intact. No cyanosis. No edema. Sensory is intact. No adenopathy. ASSESSMENT AND PLAN: This is a 66-year-old female with cervicalgia, seizure disorder, and head contusion. The patient will be continued on 500 mg Tylenol every 4 hours as needed for pain. We will order an MRI of the cervical spine without contrast to rule out acute pathology due to the fall. We will recommend an MRI of the brain without contrast as per the neurologist. The patient was discussed with Dr. Rosenthal and Dr. Rosenthal concurred. We will follow up with the patient. Thank you very much for the courtesy of this consultation. Philip Rosenthal M.D. ALEXANDRA Mendoza DR: IGNACIA JOB#: [id number] CC: SANCHO
--- NOTE | 2017-01-28 09:15 | Consultation ---
DATE OF CONSULTATION: 01/27/2017 NEUROLOGICAL CONSULTATION REQUESTING PHYSICIAN: Deborah Angela M.D. HISTORY OF PRESENT ILLNESS: The patient is a 66-year-old female seen in neurological consultation to evaluate new onset of generalized seizure activity. The patient has extensive medical history including partial complex seizure activities emanating from right temporal area, never previously generalized. Last couple of days, the patient is being prepared for GI workup. Yesterday, whole day, she was taking bowel preps. Apparently, she had loss of consciousness and observed by her . She fell down hitting her head and having what seems generalized seizure. The patient was brought to emergency room. Vital signs were stable. Her laboratory work included a normal CBC. Chemistry panel with sodium 125, potassium 3.2, and blood sugar 174. Low osmolality 268. Magnesium 2.7. BNP of 471. Unremarkable lipid panel and TSH. Toxicology panel still pending. Urinalysis with a random sodium 120, osmolality of 313, and 2+ ketones. Stat CT of the brain was obtained. This revealed a right temporal craniotomy with underlying temporal encephalomalacia, small focal areas of low attenuation of right parietal lobe, which could represent a small cortical infarct, minimal right supraorbital scalp soft tissue swelling correlating with the trauma, and chronic age-related changes. There was no evidence of acute intracranial lesion, no mass, no hemorrhage. The patient was started on IV fluids with normal saline. Hyponatremia probably related to large amounts of fluid taken for prep for colonoscopy. While in the emergency department, the patient was witnessed to have seizure activities, spontaneously resolved. No treatment was given due to multiple drugs allergies. PAST MEDICAL HISTORY: The patient has a history of meningioma, underwent right-sided craniotomy for resection of meningioma. She developed intermittent episodes of "sensoring" seizures usually starting with a strange smell followed by clicking sensation in her ears and visual effect of "jumping images." This lasts a couple of minutes and then gradually resolve. Even if she is driving, she is able to pull her car off. This responded well and well controlled on Trileptal (brand only) 300 mg twice a day, higher doses attempted, but was not tolerated. The patient's other medical issues include fibromyalgia, persistent generalized aches and pains, sleep apnea, which substantially improved since she lost weight, she has hypertension, she is diagnosed with pre-diabetes, and has a mitral valve prolapse. She has major depression with anxiety, PTSD. Diagnosed with antiphospholipid syndrome. Hyperlipidemia. The patient described that at the age of 49, in 1999, she had a craniotomy for sphenoid wing meningioma, which was located "against optic nerve and carotid artery." The patient is under the care of neurologist, had previous EEG studies, which revealed no seizure activities. She had a recent MRI study displaying a right temporal area lesion. MEDICATIONS: Treatment prior to admission included Trileptal, Welchol, amlodipine, baby aspirin, Myrbetriq, vitamin D, Famvir. ALLERGIES: Very long list of allergies including aspirin (?), baclofen, benzodiazepine, benzoin, caffeine, cephalosporin, Cipro, clindamycin, codeine, dexamethasone, gabapentin, latex, Keppra, oxcarbazepine, penicillin, strawberry, sulfa, , tobramycin, trimethoprim , wool, wheat. SOCIAL HISTORY: Lives with her . No alcohol. No drug abuse. Nonsmoker. FAMILY HISTORY: Noncontributory. REVIEW OF SYSTEMS: Currently, has a substantial discomfort pain in right frontal region in place of trauma. She has a persistent severe constipation abnormalities. She has a vasovagal syncope periodically, frequently of "temporal lobe for seizure activity," only "occasional," but provoked by stress and anxiety. She has a TMJ discomfort, generalized aches and pains. No chest pain or palpitations. No respiratory problems except those related to sleep apnea. She is still using CPAP on occasion. Constipation. Depression and anxiety. PHYSICAL EXAMINATION: GENERAL: This is a well-developed, somewhat cachectic appearing, very pleasant lady, not in acute distress. VITAL SIGNS: Her vital signs are now stable, blood pressure 129/72, temperature afebrile, and heart rate of 53. HEENT: Head, normocephalic. There is a bruise in right frontal region. Postoperative scarring in the right temporal region. NECK: Supple. No meningeal signs. MUSCULOSKELETAL: Also palpable tenderness diffusely in upper back, lower back, and upper and lower extremities. Peripheral pulses 1+ symmetric. MENTAL STATUS: The patient is fully alert and oriented x3. Speech is fluent. Language intact. There is no aphasia. No apraxia. Cognitive function normal. No asymmetry. CRANIAL NERVES II: Pupils both responding to light and accommodation. Extraocular movement intact. No nystagmus. CRANIAL NERVES V: Normal corneal responses. CRANIAL NERVES VII: No facial asymmetry. CRANIAL NERVES VIII: Grossly normal hearing. CRANIAL NERVES IX THROUGH XII: Within normal limits. MOTOR EXAMINATION: Moves arms and legs against the gravity. Strength appears normal 5/5. Deep reflexes depressed bilaterally. Plantar response is flexor. SENSORY EXAMINATION: Normal to pin stimulation. Gait is slow, but stable. IMPRESSION: 1. Chronic partial complex seizure disorder, now presenting with secondary generalization in the setting of large fluid intake, severe hyponatremia, and hypokalemia. 2. Status post right sphenoid wing meningioma dissection in 1999. 3. Fibromyalgia. 4. Anxiety and depression. RECOMMENDATION: The patient is reluctant to start a new anticonvulsant. It appears that exacerbation of seizure activity related to acute metabolic derangement with a fluid overload. Certainly, additional anticonvulsant would give a better protection. We will discuss again possible adding new anticonvulsant. Meanwhile, we will obtain blood levels. Start Trileptal. The patient to continue with her current dose of 300 mg b.i.d. with metabolic correction. The patient will need further metabolic correction. Thank you for allowing me to see this interesting patient in neurological consultation. Jose Mendoza M.D. DR: CHANCE JOB#: [id number] CC:
--- NOTE | 2017-01-28 09:26 | Diagnostic Imaging Report ---
Indication: PAIN Technique: 3 views of the right shoulder Comparison: none Findings: No acute fractures. No dislocations. Joint spaces are preserved. The bones are osteoporotic Impression:No acute bony trauma
--- NOTE | 2017-01-28 09:30 | History and Physical Report ---
DATE OF ADMISSION: 01/27/2017 HISTORY OF PRESENT ILLNESS: The patient is admitted for breakthrough seizure. According to the patient, the patient had syncopal episode and according to the , had seizure and called 911. The patient also was saying that she has history of atypical syncope as well, was trying to be prepped for barium enema and this is when she passed out when she was drinking the concoction for barium enema. The patient also had some headache. Denies diplopia. Denies nausea, vomiting, or diarrhea. Denies fever or chills. PAST MEDICAL HISTORY: History of hypertension, history of Olivares syndrome, history of seizure disorder, vitamin D deficiency, and breast cancer. PAST SURGICAL HISTORY: Craniotomy, history of kidney stones, laparoscopy, bilateral mastectomy, and history of ovarian cyst removal. ALLERGIES: The patient has multiple allergies that include aspirin, baclofen, benzodiazepine, benzoin, caffeine, cephalosporin, Coreg, Cipro, clindamycin, codeine, dexamethasone, gabapentin, Lasix, Keppra, oats, and penicillin. SOCIAL HISTORY: History of smoking. No history of alcohol or illicit drugs. FAMILY HISTORY: Noncontributory. REVIEW OF SYSTEMS: HEENT: Reports headaches. RESPIRATORY: Denies shortness of breath. Denies cough. CARDIOVASCULAR: Denies chest pain. GASTROINTESTINAL: Denies nausea, vomiting, or diarrhea. EXTREMITIES: Denies pain ____. CENTRAL NERVOUS SYSTEM: The patient had syncopal episode. According to it was another seizure that she had. PHYSICAL EXAMINATION: VITAL SIGNS: Temperature is 97.5, pulse is 60, and blood pressure 148/65. HEENT: PERRLA. NECK: Supple. No lymphadenopathy. CHEST: Clear to auscultation. GASTROINTESTINAL: Soft, nontender, and nondistended. No organomegaly. EXTREMITIES: No edema. NEUROLOGIC: Oriented x2. Sensory intact to light touch. Reflexes are equal on both sides. Moves all 4 extremities. LABORATORY DATA: WBC of 7.2, hemoglobin 12.9, and platelets of 216,000. Sodium 125, potassium 2.5, BUN of 9, and creatinine of 0.7. ASSESSMENT AND PLAN: 1. Hyponatremia. 2. Hypokalemia. 3. Breakthrough seizure. 4. I have consulted Dr. Samm Mandel as well as Dr. Camargo as well as Dr. Jose Mendoza and Dr. Rosenthal for the above-mentioned diagnoses and treatment. Deborah Angela M.D. DR: STEVIE JOB#: [id number] CC:
[2017-01-28 09:44] LABS: MAGNESIUM 2.6 MG/DL (1.8-2.4); PHOSPHORUS 3.5 MG/DL (2.5-4.9); URIC ACID 3.9 MG/DL (2.6-7.2)
[2017-01-28] MEDS ORDERED: METFORMIN HCL500 M5 PO (09:51)
[2017-01-28] MEDS ORDERED: OMEPRAZOLE10 M1 ORAL (09:51)
[2017-01-28] MEDS ORDERED: PRAVASTATIN SOD80 M1 ORAL (09:51)
--- NOTE | 2017-01-28 10:46 | Diagnostic Imaging Report ---
APPROVED REPORT CPT Code: 07556 Present Symptoms Lower Extremity Edema: BILATERAL: Imaging reveals a patent deep venous system bilaterally. There is no evidence of thrombus within the femoral, popliteal or tibial segments. The greater saphenous veins are also within normal limits. Doppler indicates normal spontaneous flow within these segments.
[2017-01-28] MEDS ORDERED: BALSALAZIDE DI750 MG PO ×2 (10:59→23:05)
[2017-01-28 11:31] VITALS: BP 127/58
--- NOTE | 2017-01-28 11:59 | General Progress Note ---
Assessment/Plan Status: stable Status Narrative Na now normalized Assessment/Plan HypoNatremia likely SIADH Other: Epileptic seizure, generalized Hyponatremia syndrome Seizure disorder Multiple drug allergies Plan: Per orders- DC Hypotonic IV solution Urine studies- Serum studies- po fluid restriction Subjective ROS Limited/Unobtainable: No Allergies: Coded Allergies: ASPIRIN (Verified Allergy, Unknown, 01/26/17) BACLOFEN (Verified Allergy, Unknown, 01/26/17) BENZODIAZEPINES (Verified Allergy, Unknown, 01/26/17) BENZOIN (Verified Allergy, Unknown, 01/26/17) CAFFEINE (Verified Allergy, Unknown, 01/26/17) CEPHALOSPORINS (Verified Allergy, Unknown, 01/26/17) CIPROFLOXACIN (Verified Allergy, Unknown, 01/26/17) CLINDAMYCIN (Verified Allergy, Unknown, 01/26/17) CODEINE (Verified Allergy, Unknown, 01/26/17) DEXAMETHASONE (Verified Allergy, Unknown, 01/26/17) GABAPENTIN (Verified Allergy, Unknown, 01/26/17) LATEX (Verified Allergy, Unknown, 01/26/17) LEVETIRACETAM (Verified Allergy, Unknown, 01/26/17) OATS (Verified Allergy, Unknown, 01/26/17) ORPHENADRINE (Verified Allergy, Unknown, 01/26/17) PENICILLINS (Verified Allergy, Unknown, 01/26/17) STRAWBERRY (Verified Allergy, Unknown, 01/26/17) SULFA (SULFONAMIDE ANTIBIOTICS) (Verified Allergy, Unknown, 01/26/17) SULFAMETHOXAZOLE (Verified Allergy, Unknown, 01/26/17) TIZANIDINE (Verified Allergy, Unknown, 01/26/17) TOBRAMYCIN (Verified Allergy, Unknown, 01/26/17) TRIMETHOPRIM (Verified Allergy, Unknown, 01/26/17) WOOL (Verified Allergy, Unknown, 01/26/17) Wheat (Verified Allergy, Unknown, 01/26/17) Uncoded Allergies: CHLORINE (Allergy, Unknown, 01/26/17) SURGICAL TAPE (Allergy, Unknown, 01/26/17) Objective Last 24 Hour Vital Signs Date Time Temp Pulse Resp B/P (MAP) Pulse Ox O2 Delivery O2 Flow Rate FiO2 01/28/17 11:31 97.1 53 18 127/58 97 Room Air 01/28/17 08:38 96.8 54 20 147/67 98 Room Air 01/28/17 08:00 56 01/28/17 04:00 53 01/28/17 04:00 100.9 50 20 119/60 97 Room Air 01/28/17 00:00 61 01/28/17 00:00 98.1 74 20 106/60 100 Room Air 01/27/17 20:00 61 01/27/17 20:00 98.4 58 20 125/59 97 Room Air 58 01/27/17 16:00 64 01/27/17 15:27 98.2 63 18 122/67 99 Room Air 01/27/17 12:00 61 Intake and Output 01/28/17 01/29/17 19:00 07:00 Output Total 500 ml Balance -500 ml Output Urine Total 500 ml Laboratory Tests 01/27/17 13:35: Oxcarbazepine Metabolite [Pending] 01/28/17 07:20: White Blood Count 8.5, Red Blood Count 3.87L, Hemoglobin 11.3L, Hematocrit 36.4L , Mean Corpuscular Volume 94, Mean Corpuscular Hemoglobin 29.3, Mean Corpuscular Hemoglobin Concent 31.2L, Red Cell Distribution Width 12.5, Platelet Count 290, Mean Platelet Volume 5.4L, Neutrophils (%) (Auto) 73.5, Lymphocytes (%) (Auto) 17.4L, Monocytes (%) (Auto) 8.5, Eosinophils (%) (Auto) 0.1, Basophils (%) (Auto) 0.5, Sodium Level 141#, Potassium Level 4.3, Chloride Level 107, Carbon Dioxide Level 27, Anion Gap 7, Blood Urea Nitrogen 13, Creatinine 0.7, Estimat Glomerular Filtration Rate > 60, Glucose Level 92, Uric Acid 3.9, Calcium Level 9.2, Phosphorus Level 3.5, Magnesium Level 2.6H Height (Feet): 5 Height (Inches): 7.00 Weight (Pounds): 128 General Appearance: no apparent distress Objective no change in PE VISHAL GOODE Jan 28, 2017 11:59
[2017-01-28] MEDS ORDERED: COLESEVELAM 625 MG ORAL ONE (15:00)
--- NOTE | 2017-01-28 15:49 | Neurology Progress Note ---
Interim History Interim History ROS Limited/Unobtainable: No Complaints: slight word finding difficulty Objective Physical Exam Last Vital Signs Date Time Temp Pulse Resp B/P (MAP) Pulse Ox O2 Delivery O2 Flow Rate FiO2 01/28/17 11:31 97.1 53 18 127/58 97 Room Air 01/27/17 08:30 2.0 Laboratory Tests Test 01/28/17 07:20 White Blood Count 8.5 K/UL (4.8-10.8) Red Blood Count 3.87 M/UL (4.20-5.40) L Hemoglobin 11.3 G/DL (12.0-16.0) L Hematocrit 36.4 % (37.0-47.0) L Mean Corpuscular Volume 94 FL (80-99) Mean Corpuscular Hemoglobin 29.3 PG (27.0-31.0) Mean Corpuscular Hemoglobin Concent 31.2 G/DL (32.0-36.0) L Red Cell Distribution Width 12.5 % (11.6-14.8) Platelet Count 290 K/UL (150-450) Mean Platelet Volume 5.4 FL (6.5-10.1) L Neutrophils (%) (Auto) 73.5 % (45.0-75.0) Lymphocytes (%) (Auto) 17.4 % (20.0-45.0) L Monocytes (%) (Auto) 8.5 % (1.0-10.0) Eosinophils (%) (Auto) 0.1 % (0.0-3.0) Basophils (%) (Auto) 0.5 % (0.0-2.0) Sodium Level 141 MMOL/L (136-145) # Potassium Level 4.3 MMOL/L (3.5-5.1) Chloride Level 107 MMOL/L (98-107) Carbon Dioxide Level 27 MMOL/L (21-32) Anion Gap 7 mmol/L (5-15) Blood Urea Nitrogen 13 mg/dL (7-18) Creatinine 0.7 MG/DL (0.55-1.30) Estimat Glomerular Filtration Rate > 60 mL/min (>60) Glucose Level 92 MG/DL (74-106) Uric Acid 3.9 MG/DL (2.6-7.2) Calcium Level 9.2 MG/DL (8.5-10.1) Phosphorus Level 3.5 MG/DL (2.5-4.9) Magnesium Level 2.6 MG/DL (1.8-2.4) H General: well developed, no acute distress Head: normocophalic, atraumatic Neck: no rigidity Neurologic Exam Mental Status: awake, alert, oriented x4, normal cognition Speech: normal speech, no dysarthia Language: normal language Cranial Nerve II: fundus normal, visual infante, no papilledema Cranial Nerves III, IV, : PERRLA, EOMI, pupils Cranial Nerve V: normal facial sensations, temporales function normal, masseters function normal, pterygoids function normal Cranial Nerve VII: normal facial expressions Cranial Nerve VIII: normal hearing, no nystagmus Cranial Nerve IX: normal palate elevation, gag response Cranial Nerve X: no voice hoarseness Cranial Nerve XI: SCM symmetric, trapezii function normal Cranial Nerve XII: tongue midline, no tongue atrophy/fasciculations Motor System: no involuntary movement, no muscle wasting Sensory: normal pinprick, normal light touch, normal position sense, normal graphesthesia Coordination: normal finger to nose bilaterally Deep Tendon Reflexes: 1+ bicep (L), 1+ bicep (R), 1+ tricep (L), 1+ tricep (R) , 1+ brachioradialis (L), 1+ brachioradialis (R), 1+ knee (L), 1+ knee (R), 1+ ankle (L), 1+ ankle (R) Reflexes: flexor plantar (L), flexor plantar (R) Impression/Recommendations Problems: (1) Seizure disorder (2) Hyponatremia syndrome Status: stable Recommendations #[id number]\ EEG no sz noted CT brain no acute lesions neuro stable cont present rx REHANA LOO Jan 28, 2017 15:49
[2017-01-28 15:56] VITALS: BP 127/77
[2017-01-28] MEDS ORDERED: metFORMIN 500mg tab ORAL SCH ×2 (16:30→20:00)
--- NOTE | 2017-01-28 16:44 | Cardiology Report ---
APPROVED REPORT EKG Measurement Heart [id number] Sinus bradycardia with 1st degree AV block Possible Left atrial enlargement Cannot rule out Anterior infarct, age undetermined Abnormal ECG
--- NOTE | 2017-01-28 17:21 | Infectious Diseases Prog Note ---
Assessment/Plan Problems: (1) Recurrent herpes simplex Assessment & Plan: continue famciclovir for prophylaxis, no acute infection at this point (2) Seizure disorder Assessment & Plan: continue seizure meds, neurology is following (3) Epileptic seizure, generalized Assessment & Plan: due to seizure break through, continue neuro check, neurology is following (4) Hyponatremia syndrome Assessment & Plan: continue isadora hydration , monitor sodium level Subjective Constitutional: Reports: no symptoms HEENT: Reports: no symptoms Respiratory: Reports: no symptoms Breasts: Reports: no symptoms Cardiovascular: Reports: no symptoms Gastrointestinal/Abdominal: Reports: no symptoms Genitourinary: Reports: no symptoms Neurologic: Reports: no symptoms Psychiatric: Reports: no symptoms Skin: Reports: no symptoms Endocrine: Reports: no symptoms Hematologic: Reports: no symptoms Allergies: Coded Allergies: ASPIRIN (Verified Allergy, Unknown, 01/26/17) BACLOFEN (Verified Allergy, Unknown, 01/26/17) BENZODIAZEPINES (Verified Allergy, Unknown, 01/26/17) BENZOIN (Verified Allergy, Unknown, 01/26/17) CAFFEINE (Verified Allergy, Unknown, 01/26/17) CEPHALOSPORINS (Verified Allergy, Unknown, 01/26/17) CIPROFLOXACIN (Verified Allergy, Unknown, 01/26/17) CLINDAMYCIN (Verified Allergy, Unknown, 01/26/17) CODEINE (Verified Allergy, Unknown, 01/26/17) DEXAMETHASONE (Verified Allergy, Unknown, 01/26/17) GABAPENTIN (Verified Allergy, Unknown, 01/26/17) LATEX (Verified Allergy, Unknown, 01/26/17) LEVETIRACETAM (Verified Allergy, Unknown, 01/26/17) OATS (Verified Allergy, Unknown, 01/26/17) ORPHENADRINE (Verified Allergy, Unknown, 01/26/17) PENICILLINS (Verified Allergy, Unknown, 01/26/17) STRAWBERRY (Verified Allergy, Unknown, 01/26/17) SULFA (SULFONAMIDE ANTIBIOTICS) (Verified Allergy, Unknown, 01/26/17) SULFAMETHOXAZOLE (Verified Allergy, Unknown, 01/26/17) TIZANIDINE (Verified Allergy, Unknown, 01/26/17) TOBRAMYCIN (Verified Allergy, Unknown, 01/26/17) TRIMETHOPRIM (Verified Allergy, Unknown, 01/26/17) WOOL (Verified Allergy, Unknown, 01/26/17) Wheat (Verified Allergy, Unknown, 01/26/17) Uncoded Allergies: CHLORINE (Allergy, Unknown, 01/26/17) SURGICAL TAPE (Allergy, Unknown, 01/26/17) Objective Vital Signs Last 24 Hour Vital Signs Date Time Temp Pulse Resp B/P (MAP) Pulse Ox O2 Delivery O2 Flow Rate FiO2 01/28/17 16:00 66 01/28/17 15:56 97.2 87 20 127/77 98 Room Air 01/28/17 12:00 51 01/28/17 11:31 97.1 53 18 127/58 97 Room Air 01/28/17 08:38 96.8 54 20 147/67 98 Room Air 01/28/17 08:00 56 01/28/17 04:00 53 01/28/17 04:00 100.9 50 20 119/60 97 Room Air 01/28/17 00:00 61 01/28/17 00:00 98.1 74 20 106/60 100 Room Air 01/27/17 20:00 61 01/27/17 20:00 98.4 58 20 125/59 97 Room Air 58 Height (Feet): 5 Height (Inches): 7.00 Weight (Pounds): 128 General Appearance: WD/WN, no acute distress HEENT: normocephalic, atraumatic, anicteric, mucous membranes moist Respiratory/Chest: chest wall non-tender, lungs clear, normal breath sounds, no respiratory distress, no accessory muscle use Cardiovascular: normal peripheral pulses, normal rate, regular rhythm, no gallop/murmur, no JVD Abdomen: normal bowel sounds, soft, non tender, no organomegaly, non distended , no mass Extremities: no cyanosis, no clubbing Skin: no rash, no lesions, no ulcers Neurologic/Psychiatric: alert, oriented x 3 Laboratory Tests Test 01/28/17 07:20 White Blood Count 8.5 K/UL (4.8-10.8) Red Blood Count 3.87 M/UL (4.20-5.40) L Hemoglobin 11.3 G/DL (12.0-16.0) L Hematocrit 36.4 % (37.0-47.0) L Mean Corpuscular Volume 94 FL (80-99) Mean Corpuscular Hemoglobin 29.3 PG (27.0-31.0) Mean Corpuscular Hemoglobin Concent 31.2 G/DL (32.0-36.0) L Red Cell Distribution Width 12.5 % (11.6-14.8) Platelet Count 290 K/UL (150-450) Mean Platelet Volume 5.4 FL (6.5-10.1) L Neutrophils (%) (Auto) 73.5 % (45.0-75.0) Lymphocytes (%) (Auto) 17.4 % (20.0-45.0) L Monocytes (%) (Auto) 8.5 % (1.0-10.0) Eosinophils (%) (Auto) 0.1 % (0.0-3.0) Basophils (%) (Auto) 0.5 % (0.0-2.0) Sodium Level 141 MMOL/L (136-145) # Potassium Level 4.3 MMOL/L (3.5-5.1) Chloride Level 107 MMOL/L (98-107) Carbon Dioxide Level 27 MMOL/L (21-32) Anion Gap 7 mmol/L (5-15) Blood Urea Nitrogen 13 mg/dL (7-18) Creatinine 0.7 MG/DL (0.55-1.30) Estimat Glomerular Filtration Rate > 60 mL/min (>60) Glucose Level 92 MG/DL (74-106) Uric Acid 3.9 MG/DL (2.6-7.2) Calcium Level 9.2 MG/DL (8.5-10.1) Phosphorus Level 3.5 MG/DL (2.5-4.9) Magnesium Level 2.6 MG/DL (1.8-2.4) H Current Medications Medications (Trade) Dose Ordered Sig/Heri Route PRN Reason Start Time Stop Time Status Last Admin Dose Admin Acetaminophen (Tylenol) 500 mg Q4H PRN ORAL Mild Pain/Temp > 100.5 01/27/17 08:15 02/26/17 08:14 01/28/17 00:46 Amlodipine Besylate (Norvasc) 5 mg Q12HR ORAL 01/28/17 21:00 02/27/17 20:59 Aspirin (Ecotrin) 81 mg DAILY ORAL 01/29/17 09:00 02/28/17 08:59 Colesevelam HCl (Welchol) 3,750 mg DAILY@1500 ORAL 01/29/17 15:00 02/28/17 14:59 Lansoprazole (Prevacid) 30 mg DAILY ORAL 01/28/17 13:00 02/27/17 12:59 Metformin HCl (Glucophage) 500 mg BID@ ORAL 01/28/17 20:00 02/27/17 19:59 Patient Own Medication (Patient's Own Med) 1 ea BID@08,1999 ORAL 01/28/17 20:00 02/27/17 19:59 Patient Own Medication (Patient's Own Med) 1 ea DAILY ORAL 01/29/17 15:00 02/28/17 14:59 Patient Own Medication (Patient's Own Med) 1 ea QHS ORAL 01/28/17 21:00 02/27/17 20:59 Patient Own Medication (Patient's Own Med) 2 ea EVERY 12 HOURS ORAL 01/27/17 18:00 02/26/17 17:59 01/28/17 08:52 Patient Own Medication (Patient's Own Med) 2 ea Q12HR ORAL 01/27/17 21:00 02/26/17 20:59 01/28/17 08:57 Vitamin D (Vitamin D) 1,000 intlu DAILY ORAL 01/29/17 09:00 02/28/17 08:59 Blanquita Rocha M.D. Jan 28, 2017 17:21
--- NOTE | 2017-01-28 17:30 | Electroencephalogram ---
DATE OF PROCEDURE: 01/27/2017 PROCEDURE PERFORMED: Electroencephalography. REQUESTING PHYSICIAN: Deborah Angela M.D. TECHNIQUE: EEG was done using 18 electrodes placed scalp to scalp, scalp to ear montages according to 10/20 International System. The patient has a history of chronic seizure disorder following a right parietal craniotomy. Now presenting with exacerbation. CURRENT TREATMENT: Include Trileptal. During the recording, the patient described as awake, drowsy, or asleep, but fairly cooperative normal mentality. Activation procedure limited to eye opening and eye closure. Most wakeful portions of recording background activity consists of a [id number] voltage, 7-8 cycles per second alpha activity with good response to physiological stimulation. Throughout the recording, there is slowing with higher amplitude was noted with polymorphic delta transients, slowness in the theta range with higher amplitudes. As recording progressed, there was attenuation of background activity with appearance of diffuse slowing in the theta range. No spike or wave activities. No paroxysmal event noted. IMPRESSION: Abnormal EEG in presence of minor diffuse slowing with appearance of right focal temporal slowing with intermittent polymorphic delta transients. COMMENT: Above abnormality indicate right temporal area underlying structural abnormality, which corresponds to history of craniotomy. Mild diffuse slowing as a nonspecific finding may reflect a toxic metabolic derangement or diffuse structural lesion. Clinical correlation is necessary. Jose Mendoza M.D. DR: Idalia JOB#: [id number] CC:
[2017-01-28 20:00] VITALS: BP_SYST 137; BP_SYST 138; BP_DIAS 74; BP_DIAS 79
[2017-01-28] MEDS ORDERED: BALSALAZIDE 750 MG ORAL SCH (20:00)
[2017-01-28] MEDS ORDERED: Acetaminophen 500mg (ES) tab ORAL PRN (20:15)
--- NOTE | 2017-01-28 20:15 | General Progress Note ---
Assessment/Plan Problem List: (1) Epileptic seizure, generalized ICD Codes: G40.309 - Generalized idiopathic epilepsy and epileptic syndromes, not intractable, without status epilepticus SNOMED: 44496077 (2) Multiple drug allergies ICD Codes: Z88.9 - Allergy status to unspecified drugs, medicaments and biological substances status SNOMED: 105143898 (3) Seizure disorder ICD Codes: G40.909 - Epilepsy, unspecified, not intractable, without status epilepticus SNOMED: 539852428 (4) Recurrent herpes simplex ICD Codes: B00.9 - Herpesviral infection, unspecified SNOMED: 13341062 Status: progressing Assessment/Plan seizure disorder headache neuro work up in progress will discuss w neuro re findings Subjective Constitutional: Reports: no symptoms Allergies: Coded Allergies: ASPIRIN (Verified Allergy, Unknown, 01/26/17) BACLOFEN (Verified Allergy, Unknown, 01/26/17) BENZODIAZEPINES (Verified Allergy, Unknown, 01/26/17) BENZOIN (Verified Allergy, Unknown, 01/26/17) CAFFEINE (Verified Allergy, Unknown, 01/26/17) CEPHALOSPORINS (Verified Allergy, Unknown, 01/26/17) CIPROFLOXACIN (Verified Allergy, Unknown, 01/26/17) CLINDAMYCIN (Verified Allergy, Unknown, 01/26/17) CODEINE (Verified Allergy, Unknown, 01/26/17) DEXAMETHASONE (Verified Allergy, Unknown, 01/26/17) GABAPENTIN (Verified Allergy, Unknown, 01/26/17) LATEX (Verified Allergy, Unknown, 01/26/17) LEVETIRACETAM (Verified Allergy, Unknown, 01/26/17) OATS (Verified Allergy, Unknown, 01/26/17) ORPHENADRINE (Verified Allergy, Unknown, 01/26/17) PENICILLINS (Verified Allergy, Unknown, 01/26/17) STRAWBERRY (Verified Allergy, Unknown, 01/26/17) SULFA (SULFONAMIDE ANTIBIOTICS) (Verified Allergy, Unknown, 01/26/17) SULFAMETHOXAZOLE (Verified Allergy, Unknown, 01/26/17) TIZANIDINE (Verified Allergy, Unknown, 01/26/17) TOBRAMYCIN (Verified Allergy, Unknown, 01/26/17) TRIMETHOPRIM (Verified Allergy, Unknown, 01/26/17) WOOL (Verified Allergy, Unknown, 01/26/17) Wheat (Verified Allergy, Unknown, 01/26/17) Uncoded Allergies: CHLORINE (Allergy, Unknown, 01/26/17) SURGICAL TAPE (Allergy, Unknown, 01/26/17) Objective Last 24 Hour Vital Signs Date Time Temp Pulse Resp B/P (MAP) Pulse Ox O2 Delivery O2 Flow Rate FiO2 01/28/17 16:00 66 01/28/17 15:56 97.2 87 20 127/77 98 Room Air 01/28/17 12:00 51 01/28/17 11:31 97.1 53 18 127/58 97 Room Air 01/28/17 08:38 96.8 54 20 147/67 98 Room Air 01/28/17 08:00 56 01/28/17 04:00 53 01/28/17 04:00 100.9 50 20 119/60 97 Room Air 01/28/17 00:00 61 01/28/17 00:00 98.1 74 20 106/60 100 Room Air Intake and Output 01/28/17 01/29/17 19:00 07:00 Intake Total 200 ml Output Total 700 ml Balance -500 ml Intake Oral 200 ml Output Urine Total 700 ml Laboratory Tests 01/28/17 07:20: White Blood Count 8.5, Red Blood Count 3.87L, Hemoglobin 11.3L, Hematocrit 36.4L , Mean Corpuscular Volume 94, Mean Corpuscular Hemoglobin 29.3, Mean Corpuscular Hemoglobin Concent 31.2L, Red Cell Distribution Width 12.5, Platelet Count 290, Mean Platelet Volume 5.4L, Neutrophils (%) (Auto) 73.5, Lymphocytes (%) (Auto) 17.4L, Monocytes (%) (Auto) 8.5, Eosinophils (%) (Auto) 0.1, Basophils (%) (Auto) 0.5, Sodium Level 141#, Potassium Level 4.3, Chloride Level 107, Carbon Dioxide Level 27, Anion Gap 7, Blood Urea Nitrogen 13, Creatinine 0.7, Estimat Glomerular Filtration Rate > 60, Glucose Level 92, Uric Acid 3.9, Calcium Level 9.2, Phosphorus Level 3.5, Magnesium Level 2.6H, Iron Level [Pending], Unsaturated Iron Binding [Pending], Ferritin [Pending] Height (Feet): 5 Height (Inches): 7.00 Weight (Pounds): 128 Deborah Angela MD Jan 28, 2017 20:15
[2017-01-28 20:46] LABS: IRON 19 ug/dL (50-175); TOTAL IRON BINDING CAPACITY 341 ug/dL (250-450)
[2017-01-28 21:00] LABS: FERRITIN 40 NG/ML (8-388)
[2017-01-28] MEDS ORDERED: FAMCICLOVIR 250 MG ORAL SCH (21:00)
[2017-01-28] MEDS ORDERED: PRAVASTATIN 80 MG ORAL SCH (21:00)
[2017-01-28] MEDS: metFORMIN 500mg tab ORAL SCH (21:43)
[2017-01-29] VITALS: BP_SYST 129; BP_SYST 133; BP_DIAS 61; BP_DIAS 90
[2017-01-29 04:00] VITALS: BP 125/57
--- NOTE | 2017-01-29 07:00 | Consultation ---
DATE OF CONSULTATION: 01/27/2017 HEMATOLOGY/ONCOLOGY CONSULTATION CONSULTING PHYSICIAN: Ayaz Nicholas M.D. REQUESTING PHYSICIAN: Deborah Angela M.D. REASON FOR CONSULTATION: Evaluation of anemia. IDENTIFICATION DATA: Dear Dr. Deborah Angela: The patient is a pleasant 66-year-old female with a past medical history, which is significant for hypertension, Olivares's syndrome, seizure disorder, vitamin D deficiency, and breast cancer, at this time presents to [facility] due to the patient having syncopal episodes. The patient's called 911. The patient has a history of atypical syncope, trying to be prepped for barium enema and passed out. Hematology service was consulted given the patient's anemia. PAST MEDICAL HISTORY: As noted above. SURGICAL HISTORY: Craniotomy, kidney stone removal, laparoscopic bilateral mastectomy, and history of ovarian cyst removal. ALLERGIES: Aspirin, benzodiazepine, baclofen, benzoin, caffeine, Keflex, Coreg, Cipro, clindamycin, codeine, dexamethasone, and Neurontin. SOCIAL HISTORY: History of smoking. No history of alcohol or illicit drug use. FAMILY HISTORY: Noncontributory. REVIEW OF SYSTEMS: CONSTITUTIONAL: No fever, chills, or night sweats. SKIN: No rashes, bumps, or itching. HEENT: No headache, hearing or vision changes. BREASTS: No lumps, pain, or discharge. PULMONARY: No cough, sputum, or shortness of breath. GASTROINTESTINAL: No nausea, vomiting, or diarrhea. GENITOURINARY: No dysuria, frequency, or urgency. MUSCULOSKELETAL: No joint swelling, muscle pain, or trauma. PHYSICAL EXAMINATION: GENERAL: No acute distress. VITAL SIGNS: Temperature 98 degrees Fahrenheit, pulse of 60, respiratory rate 12, and blood pressure 126/72. PULMONARY: Decreased breath sounds. CARDIOVASCULAR: Regular rate. No S3 or S4. ABDOMEN: Soft, nontender, and nondistended. EXTREMITIES: There is 1+ edema. LABORATORY DATA: WBC 7.2, hemoglobin 12.9, hematocrit 36, and platelet count 216,000. BUN 9 and creatinine 0.7. Current hemoglobin 11.8. ASSESSMENT AND RECOMMENDATIONS: 1. Anemia secondary to chronic disease and hemodilution. Continue to closely monitor. Transfuse if hemoglobin less than 7. I have ordered anemia workup. 2. Acute kidney injury. Continue to monitor. 3. Epileptic seizures, generalized. 4. Hyponatremia syndrome. Monitor sodium level and send for urinalysis. 5. Herpes simplex virus. I appreciate the consultation. Ayaz Nicholas M.D. DR: TERRY JOB#: [id number] CC:
[2017-01-29 07:50] LABS: BASOPHILS % (AUTO) 0.7 % (0.0-2.0); EOSINOPHILS % (AUTO) 0.9 % (0.0-3.0); LYMPHOCYTES % (AUTO) 24.8 % (20.0-45.0); MEAN CORPUSCULAR HGB CONC 33.6 G/DL (32.0-36.0); MEAN CORPUSCULAR VOLUME 92 FL (80-99); MEAN PLATELET VOLUME 5.6 FL (6.5-10.1); NEUTROPHILS % (AUTO) 65.6 % (45.0-75.0); PLATELET COUNT 285 K/UL (150-450); RED BLOOD COUNT 3.67 M/UL (4.20-5.40); RED CELL DISTRIBUTION WIDTH 12.8 % (11.6-14.8); WHITE BLOOD COUNT 9.2 K/UL (4.8-10.8)
[2017-01-29] MEDS ORDERED: BALSALAZIDE 750 MG ORAL SCH ×2 (08:00→20:00)
[2017-01-29 08:05] VITALS: BP 137/75
[2017-01-29 08:08] LABS: MAGNESIUM 2.1 MG/DL (1.8-2.4); PHOSPHORUS 3.1 MG/DL (2.5-4.9)
[2017-01-29 08:15] LABS: ALANINE AMINOTRANSFERASE 15 U/L (12-78); ALBUMIN/GLOBULIN RATIO 1.1 (1.0-2.7); ANION GAP 8 mmol/L (5-15); ASPARTATE AMINO TRANSFERASE 18 U/L (15-37); CALCIUM 9.2 MG/DL (8.5-10.1); CARBON DIOXIDE 27 MMOL/L (21-32); CHLORIDE 106 MMOL/L (98-107); CREATININE 0.5 MG/DL (0.55-1.30); GLOMERULAR FILTRATION RATE > 60 mL/min (>60); POTASSIUM 4.2 MMOL/L (3.5-5.1); SODIUM 141 MMOL/L (136-145); TOTAL PROTEIN 6.2 G/DL (6.4-8.2)
--- NOTE | 2017-01-29 08:49 | General Progress Note ---
Assessment/Plan Assessment/Plan (1) Cervicalgia (2) Seizure disorder (3) Head contusion (4) Right shoulder contusion (5) Cervical DDD (6) Cervical spondylosis (7) Cervical herniated disc Pt will be continued on Tylenol. D/w Dr. Rosenthal and he concurred. Subjective Date patient seen: Jan 29, 2017 Time patient seen: 07:00 - am Allergies: Coded Allergies: ASPIRIN (Verified Allergy, Unknown, 01/26/17) BACLOFEN (Verified Allergy, Unknown, 01/26/17) BENZODIAZEPINES (Verified Allergy, Unknown, 01/26/17) BENZOIN (Verified Allergy, Unknown, 01/26/17) CAFFEINE (Verified Allergy, Unknown, 01/26/17) CEPHALOSPORINS (Verified Allergy, Unknown, 01/26/17) CIPROFLOXACIN (Verified Allergy, Unknown, 01/26/17) CLINDAMYCIN (Verified Allergy, Unknown, 01/26/17) CODEINE (Verified Allergy, Unknown, 01/26/17) DEXAMETHASONE (Verified Allergy, Unknown, 01/26/17) GABAPENTIN (Verified Allergy, Unknown, 01/26/17) LATEX (Verified Allergy, Unknown, 01/26/17) LEVETIRACETAM (Verified Allergy, Unknown, 01/26/17) OATS (Verified Allergy, Unknown, 01/26/17) ORPHENADRINE (Verified Allergy, Unknown, 01/26/17) PENICILLINS (Verified Allergy, Unknown, 01/26/17) STRAWBERRY (Verified Allergy, Unknown, 01/26/17) SULFA (SULFONAMIDE ANTIBIOTICS) (Verified Allergy, Unknown, 01/26/17) SULFAMETHOXAZOLE (Verified Allergy, Unknown, 01/26/17) TIZANIDINE (Verified Allergy, Unknown, 01/26/17) TOBRAMYCIN (Verified Allergy, Unknown, 01/26/17) TRIMETHOPRIM (Verified Allergy, Unknown, 01/26/17) WOOL (Verified Allergy, Unknown, 01/26/17) Wheat (Verified Allergy, Unknown, 01/26/17) Uncoded Allergies: CHLORINE (Allergy, Unknown, 01/26/17) SURGICAL TAPE (Allergy, Unknown, 01/26/17) Subjective Constitutional: Reports: weakness HEENT: Reports: no symptoms Cardiovascular: Reports: no symptoms Respiratory: Reports: no symptoms Gastrointestinal/Abdominal: Reports: no symptoms Genitourinary: Reports: no symptoms Neurologic/Psychiatric: Reports: headache, weakness Endocrine: Reports: no symptoms Hematologic/Lymphatic: Reports: no symptoms Subjective Pain has been stable. Xray was reviewed. She has no new complaints. Objective Last 24 Hour Vital Signs Date Time Temp Pulse Resp B/P (MAP) Pulse Ox O2 Delivery O2 Flow Rate FiO2 01/29/17 08:05 97.5 56 14 137/75 100 Room Air 01/29/17 04:00 97.7 59 20 125/57 98 Room Air 01/29/17 00:00 97.7 76 19 133/90 97 Room Air 01/29/17 00:00 98.2 55 18 129/61 97 Room Air 01/28/17 21:44 74 137/74 01/28/17 20:00 99.1 74 20 137/74 96 Room Air 01/28/17 20:00 97.9 55 18 138/79 95 Room Air 01/28/17 16:00 66 01/28/17 15:56 97.2 87 20 127/77 98 Room Air 01/28/17 12:00 51 01/28/17 11:31 97.1 53 18 127/58 97 Room Air Laboratory Tests 01/29/17 04:30: White Blood Count 9.2, Red Blood Count 3.67L, Hemoglobin 11.4L, Hematocrit 33.8L , Mean Corpuscular Volume 92, Mean Corpuscular Hemoglobin 31.0, Mean Corpuscular Hemoglobin Concent 33.6, Red Cell Distribution Width 12.8, Platelet Count 285, Mean Platelet Volume 5.6L, Neutrophils (%) (Auto) 65.6, Lymphocytes ( %) (Auto) 24.8, Monocytes (%) (Auto) 8.0, Eosinophils (%) (Auto) 0.9, Basophils (%) (Auto) 0.7, Sodium Level 141, Potassium Level 4.2, Chloride Level 106, Carbon Dioxide Level 27, Anion Gap 8, Blood Urea Nitrogen 18, Creatinine 0.5L, Estimat Glomerular Filtration Rate > 60, Glucose Level 106, Osmolality 296L, Uric Acid 3.0, Calcium Level 9.2, Phosphorus Level 3.1, Magnesium Level 2.1, Total Bilirubin 0.2, Aspartate Amino Transf (AST/SGOT) 18, Alanine Aminotransferase (ALT/SGPT) 15, Alkaline Phosphatase 77, Total Protein 6.2L, Albumin 3.3L, Globulin 2.9, Albumin/Globulin Ratio 1.1 Height (Feet): 5 Height (Inches): 7.00 Weight (Pounds): 131 Objective General Appearance: no apparent distress, alert EENT: PERRL/EOMI, normal ENT inspection Neck: non-tender, normal alignment Cardiovascular: normal rate, regular rhythm Respiratory/Chest: lungs clear, normal breath sounds Abdomen: normal bowel sounds, non tender, soft Extremities: other - ecchymosis noted to right shoulder with tenderness to palpation Neurologic: alert, responsive Skin: warm/dry Procedure: XRAY Shoulder Compl R Findings: No acute fractures. No dislocations. Joint spaces are preserved. The bones are osteoporotic Impression:No acute bony trauma LAURO CHARLES Jan 29, 2017 08:49
[2017-01-29] MEDS ORDERED: FAMCICLOVIR 250 MG ORAL SCH ×2 (09:00)
[2017-01-29] MEDS ORDERED: MIRABEGRON 50 MG ORAL SCH ×3 (09:00→15:00)
[2017-01-29] MEDS ORDERED: Vitamin D 1000 IU Tab ORAL SCH ×3 (09:00→21:00)
[2017-01-29] MEDS ORDERED: Aspirin EC 81mg tab ORAL SCH ×2 (09:00)
[2017-01-29] MEDS: metFORMIN 500mg tab ORAL SCH (10:04)
[2017-01-29] MEDS: TRILEPTAL 150 MG ORAL SCH (10:04)
[2017-01-29 11:59] VITALS: BP 152/76
--- NOTE | 2017-01-29 12:50 | General Progress Note ---
Assessment/Plan Assessment/Plan ASSESSMENT AND RECOMMENDATIONS: 1. Anemia secondary to chronic disease and hemodilution. Counts currently not critical. 2. Acute kidney injury. Continue to monitor. 3. Epileptic seizures, generalized. 4. Hyponatremia syndrome. Monitor sodium level 5. Herpes simplex virus. Subjective Constitutional: Reports: malaise Allergies: Coded Allergies: ASPIRIN (Verified Allergy, Unknown, 01/26/17) BACLOFEN (Verified Allergy, Unknown, 01/26/17) BENZODIAZEPINES (Verified Allergy, Unknown, 01/26/17) BENZOIN (Verified Allergy, Unknown, 01/26/17) CAFFEINE (Verified Allergy, Unknown, 01/26/17) CEPHALOSPORINS (Verified Allergy, Unknown, 01/26/17) CIPROFLOXACIN (Verified Allergy, Unknown, 01/26/17) CLINDAMYCIN (Verified Allergy, Unknown, 01/26/17) CODEINE (Verified Allergy, Unknown, 01/26/17) DEXAMETHASONE (Verified Allergy, Unknown, 01/26/17) GABAPENTIN (Verified Allergy, Unknown, 01/26/17) LATEX (Verified Allergy, Unknown, 01/26/17) LEVETIRACETAM (Verified Allergy, Unknown, 01/26/17) OATS (Verified Allergy, Unknown, 01/26/17) ORPHENADRINE (Verified Allergy, Unknown, 01/26/17) PENICILLINS (Verified Allergy, Unknown, 01/26/17) STRAWBERRY (Verified Allergy, Unknown, 01/26/17) SULFA (SULFONAMIDE ANTIBIOTICS) (Verified Allergy, Unknown, 01/26/17) SULFAMETHOXAZOLE (Verified Allergy, Unknown, 01/26/17) TIZANIDINE (Verified Allergy, Unknown, 01/26/17) TOBRAMYCIN (Verified Allergy, Unknown, 01/26/17) TRIMETHOPRIM (Verified Allergy, Unknown, 01/26/17) WOOL (Verified Allergy, Unknown, 01/26/17) Wheat (Verified Allergy, Unknown, 01/26/17) Uncoded Allergies: CHLORINE (Allergy, Unknown, 01/26/17) SURGICAL TAPE (Allergy, Unknown, 01/26/17) All Systems: reviewed and negative except above Objective Last 24 Hour Vital Signs Date Time Temp Pulse Resp B/P (MAP) Pulse Ox O2 Delivery O2 Flow Rate FiO2 01/29/17 11:59 97.9 60 18 152/76 100 Room Air 01/29/17 08:05 97.5 56 14 137/75 100 Room Air 01/29/17 04:00 97.7 59 20 125/57 98 Room Air 01/29/17 00:00 97.7 76 19 133/90 97 Room Air 01/29/17 00:00 98.2 55 18 129/61 97 Room Air 01/28/17 21:44 74 137/74 01/28/17 20:00 99.1 74 20 137/74 96 Room Air 01/28/17 20:00 97.9 55 18 138/79 95 Room Air 01/28/17 16:00 66 01/28/17 15:56 97.2 87 20 127/77 98 Room Air Laboratory Tests 01/29/17 04:30: White Blood Count 9.2, Red Blood Count 3.67L, Hemoglobin 11.4L, Hematocrit 33.8L , Mean Corpuscular Volume 92, Mean Corpuscular Hemoglobin 31.0, Mean Corpuscular Hemoglobin Concent 33.6, Red Cell Distribution Width 12.8, Platelet Count 285, Mean Platelet Volume 5.6L, Neutrophils (%) (Auto) 65.6, Lymphocytes ( %) (Auto) 24.8, Monocytes (%) (Auto) 8.0, Eosinophils (%) (Auto) 0.9, Basophils (%) (Auto) 0.7, Sodium Level 141, Potassium Level 4.2, Chloride Level 106, Carbon Dioxide Level 27, Anion Gap 8, Blood Urea Nitrogen 18, Creatinine 0.5L, Estimat Glomerular Filtration Rate > 60, Glucose Level 106, Osmolality 296L, Uric Acid 3.0, Calcium Level 9.2, Phosphorus Level 3.1, Magnesium Level 2.1, Total Bilirubin 0.2, Aspartate Amino Transf (AST/SGOT) 18, Alanine Aminotransferase (ALT/SGPT) 15, Alkaline Phosphatase 77, Total Protein 6.2L, Albumin 3.3L, Globulin 2.9, Albumin/Globulin Ratio 1.1 Height (Feet): 5 Height (Inches): 7.00 Weight (Pounds): 131 General Appearance: no apparent distress EENT: normal ENT inspection Cardiovascular: normal rate Abdomen: non tender, soft Edema: mild edema Skin: warm/dry Ayaz Nicholas Jan 29, 2017 12:50
[2017-01-29] MEDS ORDERED: D5NS 1000ml IV ONE (14:01)
[2017-01-29] MEDS ORDERED: D5 1/2NS 1000ml IV ONE (14:01)
--- NOTE | 2017-01-29 15:07 | General Progress Note ---
Assessment/Plan Status: stable Status Narrative low Na now normalized Assessment/Plan HypoNatremia likely SIADH Other: Epileptic seizure, generalized Hyponatremia syndrome Seizure disorder Multiple drug allergies Plan: po fluid restriction DC ? Subjective Date patient seen: Jan 29, 2017 Time patient seen: 09:00 ROS Limited/Unobtainable: No Allergies: Coded Allergies: ASPIRIN (Verified Allergy, Unknown, 01/26/17) BACLOFEN (Verified Allergy, Unknown, 01/26/17) BENZODIAZEPINES (Verified Allergy, Unknown, 01/26/17) BENZOIN (Verified Allergy, Unknown, 01/26/17) CAFFEINE (Verified Allergy, Unknown, 01/26/17) CEPHALOSPORINS (Verified Allergy, Unknown, 01/26/17) CIPROFLOXACIN (Verified Allergy, Unknown, 01/26/17) CLINDAMYCIN (Verified Allergy, Unknown, 01/26/17) CODEINE (Verified Allergy, Unknown, 01/26/17) DEXAMETHASONE (Verified Allergy, Unknown, 01/26/17) GABAPENTIN (Verified Allergy, Unknown, 01/26/17) LATEX (Verified Allergy, Unknown, 01/26/17) LEVETIRACETAM (Verified Allergy, Unknown, 01/26/17) OATS (Verified Allergy, Unknown, 01/26/17) ORPHENADRINE (Verified Allergy, Unknown, 01/26/17) PENICILLINS (Verified Allergy, Unknown, 01/26/17) STRAWBERRY (Verified Allergy, Unknown, 01/26/17) SULFA (SULFONAMIDE ANTIBIOTICS) (Verified Allergy, Unknown, 01/26/17) SULFAMETHOXAZOLE (Verified Allergy, Unknown, 01/26/17) TIZANIDINE (Verified Allergy, Unknown, 01/26/17) TOBRAMYCIN (Verified Allergy, Unknown, 01/26/17) TRIMETHOPRIM (Verified Allergy, Unknown, 01/26/17) WOOL (Verified Allergy, Unknown, 01/26/17) Wheat (Verified Allergy, Unknown, 01/26/17) Uncoded Allergies: CHLORINE (Allergy, Unknown, 01/26/17) SURGICAL TAPE (Allergy, Unknown, 01/26/17) Objective Last 24 Hour Vital Signs Date Time Temp Pulse Resp B/P (MAP) Pulse Ox O2 Delivery O2 Flow Rate FiO2 01/29/17 11:59 97.9 60 18 152/76 100 Room Air 01/29/17 08:05 97.5 56 14 137/75 100 Room Air 01/29/17 04:00 97.7 59 20 125/57 98 Room Air 01/29/17 00:00 97.7 76 19 133/90 97 Room Air 01/29/17 00:00 98.2 55 18 129/61 97 Room Air 01/28/17 21:44 74 137/74 01/28/17 20:00 99.1 74 20 137/74 96 Room Air 01/28/17 20:00 97.9 55 18 138/79 95 Room Air 01/28/17 16:00 66 01/28/17 15:56 97.2 87 20 127/77 98 Room Air Laboratory Tests 01/29/17 04:30: White Blood Count 9.2, Red Blood Count 3.67L, Hemoglobin 11.4L, Hematocrit 33.8L , Mean Corpuscular Volume 92, Mean Corpuscular Hemoglobin 31.0, Mean Corpuscular Hemoglobin Concent 33.6, Red Cell Distribution Width 12.8, Platelet Count 285, Mean Platelet Volume 5.6L, Neutrophils (%) (Auto) 65.6, Lymphocytes ( %) (Auto) 24.8, Monocytes (%) (Auto) 8.0, Eosinophils (%) (Auto) 0.9, Basophils (%) (Auto) 0.7, Sodium Level 141, Potassium Level 4.2, Chloride Level 106, Carbon Dioxide Level 27, Anion Gap 8, Blood Urea Nitrogen 18, Creatinine 0.5L, Estimat Glomerular Filtration Rate > 60, Glucose Level 106, Osmolality 296L, Uric Acid 3.0, Calcium Level 9.2, Phosphorus Level 3.1, Magnesium Level 2.1, Total Bilirubin 0.2, Aspartate Amino Transf (AST/SGOT) 18, Alanine Aminotransferase (ALT/SGPT) 15, Alkaline Phosphatase 77, Total Protein 6.2L, Albumin 3.3L, Globulin 2.9, Albumin/Globulin Ratio 1.1 Height (Feet): 5 Height (Inches): 7.00 Weight (Pounds): 131 General Appearance: no apparent distress Objective no change in PE VISHAL GOODE Jan 29, 2017 15:07
--- NOTE | 2017-01-29 22:33 | Consultation ---
History of Present Illness General Chief Complaint: Seizure Present Illness HPI 66-year-old female with a past medical history, which is significant for hypertension, Olivares's syndrome, seizure disorder, vitamin D deficiency, and breast cancer, bib ambulance to [facility] due to the patient having syncopal episodes. The patient's called 911. the pt was very upset and they were yelling at the nurse. they initially did not want to leave however after I spoke to her and her , they agreed to leave. the pt was anxious and stated that her issue is not addressed. She was tearful and stated that she still has problem pronouncing words. She used to see a psychiatrist and I encouraged her to see him again. She also has insomnia. Allergies: Coded Allergies: ASPIRIN (Verified Allergy, Unknown, 01/26/17) BACLOFEN (Verified Allergy, Unknown, 01/26/17) BENZODIAZEPINES (Verified Allergy, Unknown, 01/26/17) BENZOIN (Verified Allergy, Unknown, 01/26/17) CAFFEINE (Verified Allergy, Unknown, 01/26/17) CEPHALOSPORINS (Verified Allergy, Unknown, 01/26/17) CIPROFLOXACIN (Verified Allergy, Unknown, 01/26/17) CLINDAMYCIN (Verified Allergy, Unknown, 01/26/17) CODEINE (Verified Allergy, Unknown, 01/26/17) DEXAMETHASONE (Verified Allergy, Unknown, 01/26/17) GABAPENTIN (Verified Allergy, Unknown, 01/26/17) LATEX (Verified Allergy, Unknown, 01/26/17) LEVETIRACETAM (Verified Allergy, Unknown, 01/26/17) OATS (Verified Allergy, Unknown, 01/26/17) ORPHENADRINE (Verified Allergy, Unknown, 01/26/17) PENICILLINS (Verified Allergy, Unknown, 01/26/17) STRAWBERRY (Verified Allergy, Unknown, 01/26/17) SULFA (SULFONAMIDE ANTIBIOTICS) (Verified Allergy, Unknown, 01/26/17) SULFAMETHOXAZOLE (Verified Allergy, Unknown, 01/26/17) TIZANIDINE (Verified Allergy, Unknown, 01/26/17) TOBRAMYCIN (Verified Allergy, Unknown, 01/26/17) TRIMETHOPRIM (Verified Allergy, Unknown, 01/26/17) WOOL (Verified Allergy, Unknown, 01/26/17) Wheat (Verified Allergy, Unknown, 01/26/17) Uncoded Allergies: CHLORINE (Allergy, Unknown, 01/26/17) SURGICAL TAPE (Allergy, Unknown, 01/26/17) Medication History Scheduled Amlodipine Besylate* (Amlodipine Besylate*), 5 MG ORAL HS, (Reported) Aspirin* (Aspir 81*), 81 MG ORAL DAILY, (Reported) Balsalazide Disodium (Balsalazide Disodium), 3 CAP PO DAILY, (Reported) Balsalazide Disodium (Balsalazide Disodium), 2 CAP PO HS, (Reported) Colesevelam Hcl (Welchol), 6 TAB ORAL DAILY@1500, (Reported) Famciclovir* (Famvir*), 500 MG ORAL EVERY 12 HOURS, (Reported) Metformin HCl (Metformin HCl ER), 500 MG PO breakfast and dinner, (Reported) Mirabegron (Myrbetriq), 50 MG PO DAILY, (Reported) Omeprazole (Omeprazole), 10 MG ORAL DAILY, (Reported) Oxcarbazepine* (Trileptal*), 2 TAB PO Q12HR, (Reported) Pravastatin Sod (Pravastatin Sod), 80 MG ORAL BEDTIME, (Reported) Vitamin D (Vitamin D3), 10,000 UNITS ORAL DAILY, (Reported) Miscellaneous Medications B Infantis/B Ani/B Abram/B Bifid (Probiotic 4X Caplet), 1 EACH PO, (Reported) Fluocinonide* (Lidex*), 1 APPLIC TOPIC, (Reported) Patient History History Provided By: Patient, Significant Other, Medical Record, PMD Healthcare decision maker Resuscitation status Full Code Advanced Directive on File Past Medical/Surgical History Past Medical/Surgical History: (1) Recurrent herpes simplex Review of Systems Psychiatric: Reports: anxiety, depressed feelings, emotional problems Physical Exam General Appearance: no apparent distress, alert, thin Neurologic: alert, oriented x 3, responsive, normal mood/affect Last 24 Hour Vital Signs Date Time Temp Pulse Resp B/P (MAP) Pulse Ox O2 Delivery O2 Flow Rate FiO2 01/29/17 11:59 97.9 60 18 152/76 100 Room Air 01/29/17 08:05 97.5 56 14 137/75 100 Room Air 01/29/17 04:00 97.7 59 20 125/57 98 Room Air 01/29/17 00:00 97.7 76 19 133/90 97 Room Air 01/29/17 00:00 98.2 55 18 129/61 97 Room Air Laboratory Tests Test 01/29/17 04:30 White Blood Count 9.2 K/UL (4.8-10.8) Red Blood Count 3.67 M/UL (4.20-5.40) L Hemoglobin 11.4 G/DL (12.0-16.0) L Hematocrit 33.8 % (37.0-47.0) L Mean Corpuscular Volume 92 FL (80-99) Mean Corpuscular Hemoglobin 31.0 PG (27.0-31.0) Mean Corpuscular Hemoglobin Concent 33.6 G/DL (32.0-36.0) Red Cell Distribution Width 12.8 % (11.6-14.8) Platelet Count 285 K/UL (150-450) Mean Platelet Volume 5.6 FL (6.5-10.1) L Neutrophils (%) (Auto) 65.6 % (45.0-75.0) Lymphocytes (%) (Auto) 24.8 % (20.0-45.0) Monocytes (%) (Auto) 8.0 % (1.0-10.0) Eosinophils (%) (Auto) 0.9 % (0.0-3.0) Basophils (%) (Auto) 0.7 % (0.0-2.0) Sodium Level 141 MMOL/L (136-145) Potassium Level 4.2 MMOL/L (3.5-5.1) Chloride Level 106 MMOL/L (98-107) Carbon Dioxide Level 27 MMOL/L (21-32) Anion Gap 8 mmol/L (5-15) Blood Urea Nitrogen 18 mg/dL (7-18) Creatinine 0.5 MG/DL (0.55-1.30) L Estimat Glomerular Filtration Rate > 60 mL/min (>60) Glucose Level 106 MG/DL (74-106) Osmolality 296 mOsm/kg (297-317) L Uric Acid 3.0 MG/DL (2.6-7.2) Calcium Level 9.2 MG/DL (8.5-10.1) Phosphorus Level 3.1 MG/DL (2.5-4.9) Magnesium Level 2.1 MG/DL (1.8-2.4) Total Bilirubin 0.2 MG/DL (0.2-1.0) Aspartate Amino Transf (AST/SGOT) 18 U/L (15-37) Alanine Aminotransferase (ALT/SGPT) 15 U/L (12-78) Alkaline Phosphatase 77 U/L (46-116) Total Protein 6.2 G/DL (6.4-8.2) L Albumin 3.3 G/DL (3.4-5.0) L Globulin 2.9 g/dL Albumin/Globulin Ratio 1.1 (1.0-2.7) Height (Feet): 5 Height (Inches): 7.00 Weight (Pounds): 131 Assessment/Plan Status: stable, progressing Assessment/Plan Anxiety d/o -the pt was reluctant to take meds -she agreed to go home and follow up with her psychiatrist Reny Shah M.D. Jan 29, 2017 22:33
--- NOTE | 2017-02-01 10:27 | Discharge Summary ---
Discharge Summary Hospital Course Date of Admission Jan 27, 2017 at 02:16 Date of Discharge Jan 29, 2017 at 14:02 Admitting Diagnosis HYPONATREMIA,SEIZURE HPI Mary Gray is a 66 year old female who was admitted on Jan 27, 2017 at 02: 16 for Hyponatremia,Seizures Hospital Course dc summary #[id number] Discharge Medications Continued Medications: Amlodipine Besylate* (Amlodipine Besylate*) 5 Mg Tablet 5 MG ORAL HS, TAB Aspirin* (Aspir 81*) 81 Mg Tablet.dr 81 MG ORAL DAILY, TAB B Infantis/B Ani/B Abram/B Bifid (Probiotic 4X Caplet) 1 Each Tablet.dr 1 EACH PO, TAB Balsalazide Disodium (Balsalazide Disodium) 750 Mg Capsule 3 CAP PO DAILY, CAP Balsalazide Disodium (Balsalazide Disodium) 750 Mg Capsule 2 CAP PO HS, CAP Colesevelam Hcl (Welchol) 625 Mg Tablet 6 TAB ORAL DAILY@1500 for 30 Days, TAB 0 Refills Famciclovir* (Famvir*) 500 Mg Tablet 500 MG ORAL EVERY 12 HOURS, TAB Fluocinonide* (Lidex*) 15 Gm Cr 1 APPLIC TOPIC, #15 GM 0 Refills Metformin HCl (Metformin HCl ER) 500 Mg [id number] 500 MG PO breakfast and dinner, TAB Mirabegron (Myrbetriq) 50 Mg Tab.er.24h 50 MG PO DAILY, TAB Omeprazole (Omeprazole) 10 Mg Capsule.dr 10 MG ORAL DAILY, #30 CAP 0 Refills Oxcarbazepine* (Trileptal*) 600 Mg Tablet 2 TAB PO Q12HR, TAB Pravastatin Sod (Pravastatin Sod) 80 Mg Tablet 80 MG ORAL BEDTIME, TAB Vitamin D (Vitamin D3) 400 Unit Tablet [id number] UNITS ORAL DAILY, TAB Discharge Condition Upon Discharge: stable Discharge Disposition Patient was discharged to Home (01) Discharge Diagnoses: Discharge Instructions Discharge Instructions Special Instructions I have been assigned to complete a D/C Summary on this account. I was not involved in the patient management Anisa Sr NP (Vanchtein) Feb 01, 2017 10:27
--- NOTE | 2017-02-01 23:00 | Discharge Summary 2 SIG ---
DATE OF ADMISSION: 01/27/2017 DATE OF DISCHARGE: 01/29/2017 REASON FOR ADMISSION: 66-year-old female with history of seizure disorder, fibromyalgia, status post craniotomy in 2009, depression, and anxiety presented from home after seizure activity. The patient takes at home Trileptal for seizure maintenance. Upon arrival to ED, reported pain in her head and generalized body aches. Workup in the emergency room revealed sodium- 125 and potassium -3.2. Urinalysis revealed no evidence of UTI. The patient had no leukocytosis. The patient was admitted for further management for acute hyponatremia and epileptic seizure, generalized. HOSPITAL COURSE: The patient was admitted. Neurology consult was requested. Neurologist seen and evaluated the patient. Neurologist initially advised to add another anticonvulsant to current anticonvulsant regimen of Trileptal. The patient was reluctant to add another medication. Trileptal was resumed. CT of the head revealed no acute intracranial pathology. No acute lesions. EEG revealed no seizure activities. Neurologist cleared the patient for discharge. No further seizures on Trileptal. According to neurologist, seizure activity was likely provoked by metabolic derangement ( low sodium on admission). Nurse Quality followed for the management of hyponatremia. Hyponatremia workup initiated. The patient initially was on IV fluids with sodium, then attempted fluid restriction. Sodium normalized from initial 125 up to 141. According to photo engraver, hyponatremia was likely due to SIADH. The patient fell during the seizure episode at home. Patient undergone additional images such as right shoulder x-ray, which revealed no acute bony trauma. The patient also undergone cervical spine MRI, which revealed no acute bony trauma, but showed degenerative changes manifested primarily by spinal stenosis and neural foraminal narrowing. Pain specialist followed. Pain was controlled. The patient with history of recurrent HSV. Famvir was continued as per ID recommendation for prophylaxis. No evidence of acute infection. Psychiatrist seen and evaluated the patient for anxiety and depression. The patient was reluctant to start new medication. Patient stated that she will follow up with her own psychiatrist. Blood sugar was managed with metformin and was stable. Blood pressure was managed with a calcium channel chantel and was stable. Aspirin and statin were continued. GI prophylaxis provided. The patient was stable for discharge. FINAL DIAGNOSES: 1. Acute hyponatremia, likely due to syndrome of inappropriate antidiuretic hormone, resolved. 2. Chronic partial complex seizure. 3. Fibromyalgia. 4. Anxiety and depression. 5. Cervicalgia. 6. Head contusion. 7. Right shoulder contusion. 8. Cervical degenerative disc disease. 9. Cervical spondylosis. 10. Cervical herniated disc. 11. Recurrent HSV. DISCHARGE MEDICATIONS: See medication reconciliation list. DISCHARGE INSTRUCTIONS: The patient discharged home. FOLLOWUP: Follow up with the primary medical doctor next week. Deborah Angela M.D. I have been assigned to dictate discharge summary on this account and I was not involved in the patient's management. Anisa EdmondsSt. Francis Hospital & Heart CenterKevin N.PAlix DR: Moise JOB#: [id number] CC: SANCHO
== END 2017-01-29 14:02 | disposition home or self-care (01) | DRG 101 ==
LOC: EDBD 22:25 → EMR 23:01 → 2E 01-27 02:16 → EDBEDREQ 01-27 05:14 → 4E 01-28 18:59
PROC: 4A00X4Z Measurement of Central Nervous Electrical Activity, External Approach (ICD-10-PCS; principal; 2017-01-27)
DX: G40.209 Localization-related (focal) (partial) symptomatic epilepsy and epileptic syndromes with complex partial seizures, not intractable, without status epilepticus (principal); N17.9 Acute kidney failure, unspecified; E22.2 Syndrome of inappropriate secretion of antidiuretic hormone; E87.1 Hypo-osmolality and hyponatremia; S00.93XA Contusion of unspecified part of head, initial encounter; I10 Essential (primary) hypertension; D63.8 Anemia in other chronic diseases classified elsewhere; M50.20 Other cervical disc displacement, unspecified cervical region; B00.9 Herpesviral infection, unspecified; E87.6 Hypokalemia; M79.7 Fibromyalgia; F41.8 Other specified anxiety disorders; M50.323 Other cervical disc degeneration at C6-C7 level; M47.9 Spondylosis, unspecified; S40.011A Contusion of right shoulder, initial encounter; Z88.0 Allergy status to penicillin; Z85.3 Personal history of malignant neoplasm of breast; Z87.891 Personal history of nicotine dependence; W19.XXXA Unspecified fall, initial encounter; Y92.89 Other specified places as the place of occurrence of the external cause
CPT/HCPCS: 36415; 70450; 72141; 80048; 80053; 80061; 80301; 81003; 82728; 83540; 83550; 83735; 83789; 83880; 83930; 83935; 84100; 84300; 84443; 84550; 85025; 86140; 93005; 93970; 95819; 99285; J2405